=== PATIENT | male | born 1975 | race Caucasian/White ===

== ENCOUNTER 2024-02-14 10:55 | Emergency (ER) | payer BC, SELFPAY ==
[2024-02-14 11:04] VITALS: BP 144/78; PULSE 82; RESP 20; TEMP 36.8; O2SAT 100
--- NOTE | 2024-02-14 11:17 | ED.SOB ---
HPI - SOB/Dyspnea General Chief Complaint: Shortness of Breath/Dyspnea Stated Complaint: Chest Pain/Shortness of Breath Time Seen by Provider: 02/14/24 11:18 Source: patient, RN notes reviewed and old records reviewed Mode of arrival: ambulatory Limitations: no limitations History of Present Illness HPI Narrative: 48 year old male who presents to express care with complaints of episodes of shortness of breath with some tightness and burning in chest since Wednesday. Patient reports that he notices episodes are worse when he is outside in heat and working. He states history of asthma and seasonal allergies and past history of MN with 2 stents placed. He reports that around 829 he noticed episode and they had windows open and he became concerned and took 4 baby aspirins. Patient reports that he has an inhaler at home and did not use it. He states that on the way here in the air conditioning the symptoms resolved and denies any present dyspnea or any tightness or burning in chest. Patient has no tachypnea or any retractions SAO2 100% on room air. Patient reports no nausea or sharp pain to chest with episodes or any sweating or radiation of pain to arm. He states that he saw his tool liaison Dr Newberry in October. MD elicited complaint: shortness of breath and chest pain (burning) Pertinent past history: asthma and other ([place] with 2 stents) Onset (ago): day(s) (829) Exacerbating factors: warm air and humidity Treatment prior to arrival: other (took 4 baby aspirins) Related Data Home Medications Medication Instructions Recorded Confirmed atorvastatin 80 mg tablet 80 mg PO DAILY 02/14/24 02/14/24 ramipril 5 mg capsule 5 mg PO DAILY 02/14/24 02/14/24 Allergies Allergy/AdvReac Type Severity Reaction Status Date / Time Penicillins Allergy Mild Unknown Verified 02/14/24 11:18 DIPHENHYDRAMINE HCL Allergy Mild Unknown Uncoded 02/14/24 11:18 METHYLPHENIDATE HCL Allergy Mild Unknown Uncoded 02/14/24 11:18 Review of Systems Review of Systems: CONSTITUTIONAL: Denies fever, chills, or sweats. EYES: Denies visual changes, redness, or discharge. ENT: Reports some rhinorrhea, nasal congestion,no sore throat, no otalgia. CARDIOVASCULAR: Denies chest pain, palpitations, or edema.reports episodes of tightness and burning in chest RESPIRATORY: Denies acute cough, reports episodes of dyspnea. GASTROINTESTINAL: Denies abdominal pain, nausea, vomiting, or diarrhea. GENITOURINARY: Denies dysuria or hematuria. SKIN: Denies rash or itching. MUSCULOSKELETAL: Denies back pain, joint pain, or myalgia. NEUROLOGIC: Denies headache, numbness, or weakness. PSYCHIATRIC: Denies anxiety or depression. All systems reviewed & are unremarkable except as noted in HPI and below PMFSH Past Medical History Medical History (Updated 02/15/24 @ 10:17 by Deana Qeuzada NP) Asthma Elevated cholesterol Fractured great toe right with pins Hypertension Myocardial infarction Seasonal allergies Surgical History Surgical History (Updated 02/15/24 @ 10:01 by Deana Quezada NP) History of heart artery stent x2 History of tonsillectomy Family History Family History (Updated 02/15/24 @ 10:03 by Deana Quezada NP) Father Acute myocardial infarction Social History Social History (Updated 02/15/24 @ 10:00 by Deana Quezada NP) Smoking status: Former smoker Alcohol intake: former Substance use type: marijuana Living arrangements: with family Gender identity (if verbalized by the patient): Male Comments At time of signature, agree with nursing past medical, surgical, social and family history. There is no relevant family history pertinent to the presenting complaint Exam Narrative: GENERAL: Well-appearing, well-nourished, and in no acute distress. HEAD: Normocephalic, atraumatic. EYES: PERRLA and EOMI. ENT: Nares clear, clear rhinorrhea no epistaxis. Mucous membranes moist.TM's normal with good light reflex, throat pink tonsi
--- NOTE | 2024-02-14 11:42 | ECG_ITS ---
SEE SCANNED COPY FOR CONFIRMED REPORT MTDD
== END 2024-02-14 12:22 | disposition home or self-care (01) ==
PROVIDERS: Emergency Provider Registered Nurse; PCP Physician Assistant
DX: J45.901 Unspecified asthma with (acute) exacerbation (principal); R07.89 Other chest pain; Z87.891 Personal history of nicotine dependence; F12.90 Cannabis use, unspecified, uncomplicated; J45.909 Unspecified asthma, uncomplicated; E78.00 Pure hypercholesterolemia, unspecified; I10 Essential (primary) hypertension; I25.2 Old myocardial infarction; Z95.5 Presence of coronary angioplasty implant and graft
CPT/HCPCS: 93005; 99213; G0463

== ENCOUNTER 2025-05-15 08:04 | Outpatient (CLI) | payer BC, SELFPAY ==
--- NOTE | ~2025-05-15 | US_ITS ---
US abdomen complete EXAMINATION: US Abdomen Complete INDICATION: Epigastric pain PROCEDURE: Realtime High Resolution abdomen ultrasound. COMPARISON: No prior studies for comparison FINDINGS: Gallbladder within normal limits. No gallstones, pericholecystic fluid, gallbladder wall t hickening or biliary dilatation. Common bile duct measures 3 mm. Liver echotexture within normal limits without focal mass. Pancreas within normal limits. Pancreati c tail is obscured by bowel gas. Spleen is unremarkeable. There are calcified granulomas of the sple en. Renal echotexture is within normal limits bilaterally without hydronephrosis, contour deforming m ass or renal stone. Right kidney measures 10.5 cm. Left kidney measures 12 cm. Visualized aspects of the aorta and IVC are within normal limits. Portal vein is patent. No sonograph ic Herbert's sign indicated by the technologist. IMPRESSION: 1: Normal abdominal ultrasound. Reviewed, dictated and finalized at location A.
--- OUTSIDE RECORDS SUMMARY | 2025-05-15 08:09 | XMS_ITS | Encounter Summary ---
Author Organization [facility] Address [address] [place] [address] Phone Care Team Providers Care Manager Sourcing Name Role Phone Edgar Tejeda Primary Care Provider [phone] Scott Crowley MD Unavailable Vikki Tyler MD Unavailable [phone] Carlos Marc MD Unavailable [phone] Reason for Visit * Reason Comments Medication Refill Encounter Details Date Type Department Care Team (Late st Contact Info) Description 09/10/2023 Refill [facility] [address] [place] [address] Scott Crowley MD [address] [address] Medication Refill Social History Tobacco Use Types Packs/Day Years Used Date Smoking Tobacco: Former Cigarettes 11 13 1 7 - 2013 Smokeless Tobacco: Former Chew Quit: 1987 Alcohol Use Standard Drinks/Week Comments Yes 0 (1 standard drink = 0.6 oz pur e alcohol) Rare Sexually Active Control Partners Comments Yes Sex and Gender Information Value Date Recorded Sex Assigned at Not on file Legal Sex Male 10:13 PM CDT Gender Identity Not on file Sexual Orientation Not on file documented as of this encounter Plan of Treatment Not on file documented as of this encounter Visit Diagnoses Not on filedocumented in this encounter Care Teams Manager Sourcing Relationship Specialty Start Date End Date Edgar Tejeda PAC [address] [place] [id number] PCP - General Physician Deputy County Attorney 07/01/22 Scott Crowley MD #2 [facility] [address] [place] [address] Consulting Physician Urology 07/15/22 Vikki Tyler MD [address] [address] Consulting Physician Cardiovascular Disease - Cardiology 07/31/22 Carlos Marc MD [address] [place] [address] Consulting Physician Gastroenterology 07/30/22 documented as of this encounter
--- OUTSIDE RECORDS SUMMARY | 2025-05-15 08:09 | XMS_ITS | Clinical Summary ---
Author Organization [facility] Address [address] [place] [address] Care Team Providers Care Veterinary Medicine Teacher Name Role Phone Moi Wilburn MD Primary Care Provider [phone] Fabian Parsons MD Unavailable Vikki Tyler MD Unavailable [phone] Allergies Active Allergy Reactions Criticality Noted Date Comments Diphenhydramine Anaphylaxis High Penicillins Anaphylaxis High Medications aspirin 81 mg chewable tablet Take 1 tablet (81 mg total) by mouth daily 8 Active ramipriL (ALTACE) 5 mg capsule TAKE 1 CAPSULE(5 MG) BY MOUTH DAILY 90 capsule 3 4 Active albuterol HFA (PROVENTIL HFA,VENTOLIN HFA,PROAIR HFA) 90 mcg/actuation inhaler Inhale 2 puffs every 6 (six) hours as needed 2 Active acetaminophen 500 mg capsuleIndicati ons:Pain Take 2 capsules (1,000 mg total) by mouth every 6 (six) hours 5 Active Additional Information Patient taking differently:1,000 mg oralEvery 6 hours PRN, Indications: Pain, Reported on 03/20/2025 amiodarone (PACERONE) 200 mg tabletIndicatio ns:Prevention of A. Fib Post Cardio-Thoracic Surgery Take 2 tablets (400 mg total) by mouth 2 (two) times a day for 7 days, THEN 2 tablets (400 mg total) daily. 88 tablet 5 Active Additional Information Patient not taking.Reason: completed, Reported on 03/20/2025 senna-docusate (PERICOLACE) 8.6-50 mg Take 2 tablets by mouth daily for 5 days 10 tablet 5 Active Additional Information Patient not taking.Reason: completed, Reported on 03/20/2025 LORazepam (ATIVAN) 0.5 mg tablet Take 1 tablet (0.5 mg total) by mouth nightly for 7 days 7 tablet 5 Active Additional Information Patient not taking.Reason: completed, Reported on 03/20/2025 oxyCODONE (ROXICODONE) 5 mg immediate release tabletIndicatio ns:Pain Take 1 tablet (5 mg total) by mouth every 4 (four) hours as needed for pain for up to 21 doses 21 tablet 5 Active Additional Information Patient not taking.Reason: completed, Reported on 03/20/2025 metoprolol tartrate (LOPRESSOR) 25 mg immediate release tabletIndicatio ns:coronary artery disease,hyperte nsion Take 1 tablet (25 mg total) by mouth 2 (two) times a day 180 tablet 3 5 01/26/20 26 Active atorvastatin (LIPITOR) 80 mg tablet TAKE 1 TABLET(80 MG) BY MOUTH EVERY NIGHT 90 tablet 3 5 Active furosemide (LASIX) 40 mg tabletIndicatio ns: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 Take 1 tablet (40 mg total) by mouth daily for 7 days 7 tablet 5 Active Additional Information Patient not taking.Reason: completed, Reported on 03/20/2025 warfarin (COUMADIN) 2 mg tablet TAKE 1 TABLET(2 MG) BY MOUTH DAILY 30 tablet 3 5 Active Active Problems Problem Noted Date Diagnosed Date Aortic valve stenosis, etiol ogy of cardiac valve disease unspecified 12/22/2024 Coronary artery disease (CAD) excluded NSTEMI (non-ST elevated myocardial infarction) 0 11/12/2024 Aortic valve stenosis 10/31/2024 Status post insertion of drug eluting coronary a rtery stent 09/10/2021 Atrial fibrillation 02/13/2021 AR (aortic regurgitation) 02/13/2021 Bicuspid aortic valve 02/13/2021 Coronary artery disease invo lving [place] coronary artery of [place] heart without angina pectoris 02/13/2021 Old CA (myocardial infarction) 02/13/2021 Intermittent asthma without complication 018 ST elevation myocardial infa rction involving left anterior descending (LAD) coronary artery 06/16/2018 Encounters Date Type Department Care Team Description 05/14/2025 8:00 AM CDT Office Visit [facility] Cardiac [address] [address] Heart valve replaced (Primary Dx) 05/11/2025 8:00 AM CDT Office Visit [address] [address] 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) 05/07/2025 8:00 AM CDT Office Visit [address] [address] Heart valve replaced (Primary Dx) 05/04/2025 8:00 AM CDT Office Visit [address] [address] 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) 04/30/2025 8:00 AM CDT Office Visit [address] [address] 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) 04/30/2025 Anticoagulation Telephone Call [employer] at [address] [place] [phone] Alley Boo MA Aortic valve stenosis, etiology of cardiac valve disease unspecified (Primary Dx) 04/30/2025 Results Follow-Up [employer] at [address] [place] [phone] Alley Boo MA Protime-INR 04/27/2025 5:46 PM CDT - 04/27/2025 11:59 PM CDT Hospital Encounter [address] [address] Aortic valve stenosis, etiology of cardiac valve disease unspecified Discharge Disposition: Discharge to home or self care 04/27/2025 1:30 PM CDT Lab [facility] Out[facility] Lab at [address] [phone] 04/27/2025 8:00 AM CDT Office Visit [facility] Cardiac [address] [address] 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) 04/23/2025 8:00 AM CDT Office Visit [facility] Cardiac [address] [address] 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) 04/16/2025 8:00 AM CDT Office Visit [address] [address] 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) 04/13/2025 8:00 AM CDT Office Visit [address] [address] 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) 04/09/2025 8:00 AM CDT Office Visit [address] [address] Heart valve replaced (Primary Dx) 04/03/2025 Anticoagulation Telephone Call [employer] at [address] [place] [phone] Alley Boo MA Aortic valve stenosis, etiology of cardiac valve disease unspecified (Primary Dx) 04/03/2025 Results Follow-Up [employer] at [address] [place] [phone] Alley Boo MA Protime-INR 03/30/2025 1:30 PM CDT Lab [facility] Outpatient Lab at [address] [phone] 03/30/2025 1:27 PM CDT - 03/30/2025 11:59 PM CDT Hospital Encounter [address] [address] Aortic valve stenosis, etiology of cardiac valve disease unspecified Discharge Disposition: Discharge to home or self care 03/30/2025 8:00 AM CDT Office Visit [facility] Cardiac [address] [address] 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) 03/26/2025 8:00 AM CDT Office Visit [address] [address] 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) 03/20/2025 11:45 AM CDT Office Visit [facility] Surgery [address] [facility][1] [address] [place] [phone] Puja Guzman NP History of aortic valve stenosis (Primary Dx); History of coronary artery bypass graft 03/19/2025 8:00 AM CDT Office Visit [address] [address] 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) 03/16/2025 8:00 AM CDT Office Visit [address] [address] 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) 03/14/2025 8:00 AM CDT Office Visit [address] [address] Heart valve replaced (Primary Dx) 03/09/2025 8:00 AM CDT Office Visit [address] [address] 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) 03/02/2025 8:00 AM CDT Office Visit [address] [address] 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) 03/02/2025 Anticoagulation Telephone Call [employer] at [address] [place] [phone] Alley Boo MA Aortic valve stenosis, etiology of cardiac valve disease unspecified (Primary Dx) 03/02/2025 Results Follow-Up [employer] at [address] [place] [address] Alley Boo MA Protime-INR 03/01/2025 12:00 PM CDT Lab [facility] Out[facility] Lab at [address] [address] Coronary artery disease (CAD) excluded (Primary Dx) 03/01/2025 11:49 AM CDT - 03/01/2025 11:59 PM CDT Hospital Encounter [address] [address] Aortic valve stenosis, etiology of cardiac valve disease unspecified Discharge Disposition: Discharge to home or self care 02/27/2025 Orders Only [employer] at [address] [phone] Vikki Tyler MD 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 02/27/2025 Telephone [employer] at [address] [address] Alley Boo MA 02/26/2025 8:00 AM CDT Office Visit [address] [address] 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) 02/23/2025 8:00 AM CDT Office Visit [address] [address] 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) 02/21/2025 8:00 AM CDT Office Visit [address] [address] 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) 02/19/2025 Results Follow-Up [employer] at [address] [phone] Alley Boo MA Protime-INR 02/19/2025 Anticoagulation Telephone Call [employer] at [address] [phone] Alley Boo MA Aortic valve stenosis, etiology of cardiac valve disease unspecified (Primary Dx) 02/16/2025 3:30 PM CDT Lab [facility] Outpatient Lab at [address] [phone] 02/16/2025 3:20 PM CDT - 02/16/2025 11:59 PM CDT Hospital Encounter [address] [address] Aortic valve stenosis, etiology of cardiac valve disease unspecified Discharge Disposition: Discharge to home or self care 02/14/2025 8:00 AM CDT Office Visit [facility] [address] [place] [address] 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) from Last 3 Months Surgical History Surgery Date Site/Laterality Comments ORAL SURGERY TONSILLECTOMY as a kid CARDIAC CATHETERIZATION 2 or 3 stents COLONOSCOPY ESOPHAGOGASTRODUODENOSCOPY Medical History Medical History Date Comments Hyperlipidemia Myocardial infarction (HCC) 2018 STEM I Coronary artery disease SOB (shortness of breath) last 2 -3 months Chest discomfort Asthma 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 No 11/14/2024 Social Connection and Isolat ion Panel [NHANES] Answer Date Recorded In a typical week, how many times do you talk on the phone with family, friends, or neighbors? More than three times a week 11/14/2024 How often do you get togethe r with friends or relatives? More than three times a week 11/14/2024 How often do you attend chur ch or muslim services? Never 11/14/2024 Do you belong to any clubs o r organizations such as muslim groups, unions, fraternal or athletic groups, or school groups? No 11/14/2024 How often do you attend meet ings of the clubs or organizations you belong to? Never 11/14/2024 Are you , , di vorced, , never , or living with a partner? Living with partner 11/14/2024 AUDIT-C Answer Date Recorded Q1: How often do you have a drink containing alc ohol? 2-4 times a month 11/08/2024 Q2: How many drinks containi ng alcohol do you have on a typical day when you are drinking? 1 or 2 11/08/2024 Q3: How often do you have si x or more drinks on one occasion? Never 11/08/2024 Overall Financial Resource Strain (CARDIA) Answe r Date Recorded How hard is it for you to pa y for the very basics like food, housing, medical care, and heating? Not hard at all 11/14/2024 PHQ-2 Answer Date Recorded PHQ-2 Total Score (If total score is 3 or more points, staff should administer the PHQ-9) 0 12/26/2024 Hunger Vital Sign Answer Date Recorded Within the past 12 months, y ou worried that your food would run out before you got the money to buy more. Never true 11/14/19 25 Within the past 12 months, t he food you bought just didn't last and you didn't have money to get more. Never true 11/14/2024 PRAPARE - Transportation Answer Date Re corded In the past 12 months, has l ack of transportation kept you from medical appointments or from getting medications? No 10/19 In the past 12 months, has l ack of transportation kept you from meetings, work, or from getting things needed for daily living? No 11/14/2024 Housing Stability Vital Sign Answer Jayy e Recorded In the last 12 months, was t here a time when you were not able to pay the mortgage or rent on time? No 11/14/2024 In the past 12 months, how m any times have you moved where you were living? 0 11/14/2024 At any time in the past 12 m [facility], were you homeless or living in a long-term (including now)? No 11/14/2024 Personal Safety Answer Date Recorded Have you ever been in or are you currently in a harmful physical or emotional relationship or is someone making you feel afraid or unsafe? Denies 11/12/2024 Sex and Gender Information Value Date Recorded Sex Assigned at Not on file Legal Sex Male 3:59 PM [employer] WORK[employer] Gender Identity Not on file Sexual Orientation Not on file Obstetrics History Last Filed Vital Signs Vital Sign Reading Time Taken Comments Blood Pressure 138/82 03/20/2025 11:53 AM CDT Pulse 63 03/20/2025 11:53 AM CDT Temperature 36.6 C (97.9 F) 12/22/2024 3:00 PM [employer] WORK[employer] Respiratory Rate 18 12/26/2024 10:00 AM CDT Oxygen Saturation 96% 12/26/2024 10:00 AM CDT Inhaled Oxygen Concentration - - Weight 100.7 kg (222 lb) 04/24/2025 9:00 AM CDT Height 182.9 cm (6' 0.01) 04/24/2025 9:00 AM CD T Body Mass Index 30.1 04/24/2025 9:00 AM CDT Plan of Treatment Health Maintenance Due Date Last Done Comments Colon Cancer Screening-Colonoscopy 1973 Hepatitis C Screening 1973 Prostate Cancer Screening-PSA 1973 Hepatitis B Screening 1991 Regular Well Visit/Exam 18-64 1991 Pneumococcal vaccine <65 (1 of 2 - PCV) 1992 Zoster Vaccine (1 of 2) 2023 Influenza Vaccine (#1) 2025 Depression Screening 12/26/2025 12/26/2024 DTaP/Tdap/Td Vaccine (2 - Td or Tdap) 06/20/203112/2020 Medical Devices Implanted Type Area Senior Planner Device Identifier Shelf Expiration Date Model / Serial / Lot [employer] [place] Flexcuff 25mm 23mm 1 Digit Gradient Mechanical Leaflet [id number] - [id number] - [id number] Implanted:Qty : 1 on 11/16/2024 by Fabian Parsons MD at [facility] Prosthetic Valve N/A: Heart [employer] [id number] 03/07/2028 [id number] / [id number] / [employer] Angio-Seal Vip 6fr Closere Device [id number] - [id number] Implanted:Qty : 1 on 11/13/2024 by Berto Young MD at [facility] [employer] [id number] / / Procedures Procedure Name Priority Date/Time Associated Diagnosis Comments PROTIME-INR Routine 04/27/2025 12:00 PM CDT Aortic valve stenosis, etiology of cardiac valve disease unspecified PROTIME-INR Routine 03/30/2025 1:27 PM CDT Aortic valve stenosis, etiology of cardiac valve disease unspecified PROTIME-INR Routine 03/01/2025 11:49 AM CDT Aortic valve stenosis, etiology of cardiac valve disease unspecified PROTIME-INR Routine 02/16/2025 3:20 PM CDT Aortic valve stenosis, etiology of cardiac valve disease unspecified from Last 3 Months Results * (ABNORMAL) Protime-INR (04/27/2025 12:00 PM CDT) PT 32.5(H) 9.7 - 13.0 sec INR 2.94(H) 0.90 - 1.20 [facility] Comment: Interpretive data Oral anticoagulant therapeutic ranges: Venous thromboembolism prophylaxis or treatment: 2.0-3.0 CARDIOLOGY Standard range: 2.0-3.0 High-intensity range: 2.5-3.5 Refer to indication-specific guidelines for appropriate target ranges for prosthetic heart valve replacement. Current interpretive data was last revised on 2019. Blood 04/27/2025 12:0 0 PM CDT 04/27/2025 6:25 PM CDT us Vikki Tyler MD LAB BLOOD ORDERABLES Final Result [facility] [address] [facility] Department [place] [address] * (ABNORMAL) Protime-INR (03/30/2025 1:27 PM CDT) PT 34.5(H) 9.7 - 13.0 sec INR 3.12(H) 0.90 - 1.20 [facility] Comment: Interpretive data Oral anticoagulant therapeutic ranges: Venous thromboembolism prophylaxis or treatment: 2.0-3.0 CARDIOLOGY Standard range: 2.0-3.0 High-intensity range: 2.5-3.5 Refer to indication-specific guidelines for appropriate target ranges for prosthetic heart valve replacement. Current interpretive data was last revised on 2019. Blood 03/30/2025 1:27 PM CDT 03/30/2025 5:15 PM CDT Vikki Tyler MD LAB BLOOD ORDERABLES Final Result Performing Organization Address [facility] de Phone Number [facility] [address] [address] [facility] [place] [address] [place] [address] * (ABNORMAL) Protime-INR (03/01/2025 11:49 AM CDT) PT 32.8(H) 9.7 - 13.0 sec INR 2.97(H) 0.90 - 1.20 [facility] Comment: Interpretive data Oral anticoagulant therapeutic ranges: Venous thromboembolism prophylaxis or treatment: 2.0-3.0 CARDIOLOGY Standard range: 2.0-3.0 High-intensity range: 2.5-3.5 Refer to indication-specific guidelines for appropriate target ranges for prosthetic heart valve replacement. Current interpretive data was last revised on 2019. Blood 03/01/2025 11:4 9 AM CDT 03/01/2025 9:29 PM CDT Vikki Tyler MD LAB BLOOD ORDERABLES Final Result Performing Organization Address [facility] de Phone Number [facility] [address] [address] [facility] [place] [address] [place] [address] * (ABNORMAL) Protime-INR (02/16/2025 3:20 PM CDT) PT 23.4(H) 9.7 - 13.0 sec INR 2.13(H) 0.90 - 1.20 [facility] Comment: Interpretive data Oral anticoagulant therapeutic ranges: Venous thromboembolism prophylaxis or treatment: 2.0-3.0 CARDIOLOGY Standard range: 2.0-3.0 High-intensity range: 2.5-3.5 Refer to indication-specific guidelines for appropriate target ranges for prosthetic heart valve replacement. Current interpretive data was last revised on 2019. Blood 02/16/2025 3:20 PM CDT 02/16/2025 8:44 PM CDT Vikki Tyler MD LAB BLOOD ORDERABLES Final Result Performing Organization Address [place] [address] [facility] Department [place] [address] from Last 3 Months Insurance [place] Advance Directives For more information, please contact: [phone] * Full Code (Latest Code Status on File) Date Activated Date Inactivated Comments 11/12/2024 7:55 PM 11/24/2024 10:35 PM Care Teams Veterinary Medicine Teacher Relationship Specialty Start Date End Date Moi Wilburn MD [address] [place] [address] PCP - General Internal Medicine 02/12/21 Fabian Parsons MD [address] [place] [address] Surgeon Cardiothoracic Surgery 11/24/24 Vikki Tyler MD [address] [place] [address] Consulting Physician Cardiology 11/24/24
--- OUTSIDE RECORDS SUMMARY | 2025-05-15 08:09 | XMS_ITS | Encounter Summary ---
Author Organization [facility] Healthcare Address [address] [place] [address] Care Team Providers Care Powersaw Supervisor Name Role Phone Moi Wilburn MD Primary Care Provider [phone] Fabian Parsons MD Unavailable [phone] Vikki Tyler MD Unavailable [phone] Encounter Details Date Type Department Care Team (Late st Contact Info) Description 04/30/2025 Results Follow-Up [employer] at [address] [address] Alley Boo MA Protime-INR Social History Tobacco Use Types Packs/Day Years Used Date Smoking Tobacco: Former Cigarettes Q uit: 02/12/2014 OASIS D0700: Social Isolation Answer Da te Recorded Frequency of experiencing loneliness or isolatio n Never 11/26/2024 [facility] Utilities Answer Date Recorded In the past 12 months has [employer] electric, gas, oil, or water company threatened [...] week 11/14/2024 How often do you attend [facility] or orthodoxy services? Never 11/14/2024 Do you belong to any clubs o r organizations such as adventism groups, unions, fraternal or athletic groups, or [...] any time in the past 12 m [facility], were you homeless or living in a retirement (including now)? No 11/14/2024 Personal Safety Answer Date Recorded Have you ever been in or are you currently in a harmful physical or emotional relationship or is someone making you feel afraid or unsafe? 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 Gender Identity Not on file Sexual Orientation Not on file documented as of this encounter Plan of Treatment Not on file documented as of this encounter Visit Diagnoses Not on filedocumented in this encounter Care Teams Powersaw Supervisor Relationship Specialty Start Date End Date Moi Wilburn MD [address] [place], [place] [id number] PCP - General Internal Medicine 02/12/21 Fabian Parsons MD [address] [place] [address] Surgeon Cardiothoracic Surgery 11/24/24 Vikki Tyler MD [address] [place] [address] Consulting Physician Cardiology 11/24/24 documented as of this encounter
--- OUTSIDE RECORDS SUMMARY | 2025-05-15 08:09 | XMS_ITS | Encounter Summary ---
Author Organization [facility] Address [address] [place] [address] Phone Care Team Providers Care Big Machine Consultant Name Role Phone Edgar Tejeda Primary Care Provider [phone] Scott Crowley MD Unavailable Vikki Tyler MD Unavailable [phone] Carlos Marc MD Unavailable [phone] Reason for Visit * Reason Comments Medication Refill Encounter Details Date Type Department Care Team (Late st Contact Info) Description 09/10/2023 Refill [facility] [address] [place] [address] Scott Crowley MD [address] [address] Medication Refill Social History Tobacco Use Types [...] on filedocumented in this encounter Care Teams Big Machine Consultant Relationship Specialty Start Date End Date Edgar Tejeda PAC [address] [place] [address] PCP - General Physician Pearl Stringer 07/01/22 Scott Crowley MD [address] [facility] [address] [place] [address] Consulting Physician Urology 07/15/22 Vikki Tyler MD [address] [address] Consulting Physician Cardiovascular Disease - Cardiology 07/31/22 Carlos Marc MD [address] [place] [address] Consulting Physician Gastroenterology 07/30/22 documented as of this encounter
--- OUTSIDE RECORDS SUMMARY | 2025-05-15 08:09 | XMS_ITS | Data Portability ---
Author Organization [facility] Jose M [facility] Address [address] [place] [address] Care Team Providers Care Parks And Recreation Worker Name Role Phone RAMON TEJEDA Primary Care Provider JONES RUIZ Customer Records Division Supervisor [phone] Assessment No assessment recorded. Plan of Treatment Reminders Order Date Submit Date Provider Last Modified By Organization Details Last Modified Time Details Appointments None recorded. Lab None recorded. Referral None recorded. Procedures None recorded. Surgeries None recorded. Imaging US, abdomen 2024 025 [facility], [address] [place], [address], 5 17:15:25 XR, chest, 2 view 2024 025 [facility] ([facility] Sched[facility], [address] [place], [address], 5 11:32:05 Medication Orders ibuprofen 800 mg tablet 2023 025 [id number], [address], [place], [place], [id number], 5 10:01:41 albuterol sulfate HFA 90 mcg/actuat ion aerosol inhaler 2023 024 [facility][id number], [address], [place], [place], [id number], 17:09:57 tadalafil 5 mg tablet 2023 025 [id number], [address], [place], [place], [id number], 10:03:30 Patient TargetsNo targets recorded. Patient Instructions Encounter Date Encounter Id Patient Instructions Last Modified By Organization Details Last Modified Time 09/11/2024 [id number] A healthy lifestyle: care instructions anney Not available 09/11/2024 16:19:59 12/04/2024 [id number] A healthy lifestyle: care instructions jnanney Not available 12/04/2024 10:22:25 04/03/2025 [id number] costochondritis: care instructions jnanney Not available 04/03/2025 18:43:54 A healthy lifestyle: care instructions jnanney Not available 04/03/2025 18:45:07 05/07/2025 [id number] A healthy lifestyle: care instructions jnanney Not available 05/07/2025 17:07:27 Reason for Referral None Reported. Results Created Date Observation Date Name Description Value Unit Range Abnormal Flag Note LastModifiedBy Organization Detail LastModifiedTime 10/04/2010/04/2024 Basic metab olic 1999 panel - Serum or Plasm a sodium [moles/volum e] in serum or plasma 141 mmol/ L low: 136mmo l/Lhig h: 145mmo l/L SODIU M 141 136 - 145 mmol/ L 10/04 8:59 AM SALESFORCE TRAINER [facility] Not Available Not Available 11/28/2024 12:33:03 10/04/20 24 10/04/2024 Basic metab olic 2000 panel - Serum or Plasm a potassium [moles/volum e] in serum or plasma 4.2 mmol/ L low: 3.5mmo l/Lhig h: 5.1mmo l/L POTAS SIUM 4.2 3.5 - 5.1 mmol/ L 10/04 8:59 AM SALESFORCE TRAINER [facility] [employer] [facility] Not Available Not Available 11/28/2024 12:33:03 10/04/20 24 10/04/2024 Basic metab olic 1999 panel - Serum or Plasm a chloride [moles/volum e] in serum or plasma 107 mmol/ L low: 98mmol /Lhigh : 107mmo l/L CHLOR NAZARIO 107 98 - 107 mmol/ L 10/04 8:59 AM SALESFORCE TRAINER [facility] [employer] Not Available Not Available 11/28/2024 12:33:03 10/04/20 24 10/04/2024 Basic metab olic 1999 panel - Serum or Plasm a carbon dioxide, total [moles/volum e] in serum or plasma 24 mmol/ L low: 22mmol /Lhigh : 30mmol /L CO2, VENOU S 24 22 - 30 mmol/ L 10/04 8:59 AM SALESFORCE TRAINER [facility] [employer] [facility] Not Available Not Available 11/28/2024 12:33:03 10/04/20 24 10/04/2024 Basic metab olic 1999 panel - Serum or Plasm a anion gap in serum or plasma 14.2 mmol/ L high: 18mmol /L ANION GAP 14.2 <18.0 mmol/ L 10/04 8:59 AM SALESFORCE TRAINER [facility] [employer] [facility] Not Available Not Available 11/28/2024 12:33:03 10/04/20 24 10/04/2024 Basic metab olic 2000 panel - Serum or Plasm a glucose [mass/volume ] in serum or plasma 120 mg/dL low: 70mg/d Lhigh: 99mg/d L high GLUCO SE 120 (H) 70 - 99 mg/dL 10/04 8:59 AM SALESFORCE TRAINER [facility] Not Available Not Available 11/28/2024 12:33:03 10/04/20 24 10/04/2024 Basic metab olic 2000 panel - Serum or Plasm a urea nitrogen [mass/volume ] in serum or plasma 20 mg/dL low: 8mg/dL high: 26mg/d L BUN 20 8 - 26 mg/dL 10/04 8:59 AM SALESFORCE TRAINER [facility] Not Available Not Available 11/28/2024 12:33:03 10/04/20 24 10/04/2024 Basic metab olic 1999 panel - Serum or Plasm a creatinine [mass/volume ] in serum or plasma 1.07 mg/dL low: 0.7mg/ dLhigh : 1.3mg/ dL CREAT ININE , BLOOD 1.07 0.70 - 1.30 mg/dL 10/04 8:59 AM SALESFORCE TRAINER [facility] [employer] [facility] [address] [employer] C[facility] LAB Not Available Not Available 11/28/2024 12:33:03 10/04/20 24 10/04/2024 Basic metab olic 1999 panel - Serum or Plasm a urea nitrogen/cre atinine [mass ratio] in serum or plasma 19 text: - ratio BUN/C REATI NINE RATIO 19 - ratio 10/04 8:59 AM SALESFORCE TRAINER [facility] [employer] [facility] LAB Not Available Not Available 11/28/2024 12:33:03 10/04/20 24 10/04/2024 Basic metab olic 1999 panel - Serum or Plasm a calcium [mass/volume ] in serum or plasma 9.6 mg/dL low: 8.7mg/ dLhigh : 10.5mg /dL CALCI UM 9.6 8.7 - 10.5 mg/dL 10/04 8:59 AM SALESFORCE TRAINER [facility] Not Available Not Available 11/28/2024 12:33:03 10/04/20 24 10/04/2024 Basic metab olic 2000 panel - Serum or Plasm a IS the patient required to BE fasting? No IS THE PATIE NT REQUI RED TO BE FASTI NG? No 10/04 8:59 AM SALESFORCE TRAINER [facility] Not Available Not Available 11/28/2024 12:33:03 10/04/20 24 10/04/2024 Basic metab olic 2000 panel - Serum or Plasm a glomerular filtration rate/1.73 sq M.predicted among non-blacks [volume rate/area] in serum, plasma or blood by creatinine-b ased formula (MDRD) low: 60 GFR, ESTIM ATED >60 >=60 10/04 8:59 AM SALESFORCE TRAINER [facility] [employer] [place] [facility] Not Available Not Available 11/28/2024 12:33:03 10/04/20 24 10/04/2024 Basic metab olic 2000 panel - Serum or Plasm a glomerular filtration rate/1.73 sq M.predicted among blacks [volume rate/area] in serum, plasma or blood by creatinine-b ased formula (MDRD) low: 60 GFR, EST. AFRIC AN >60 >=60 10/04 8:59 AM SALESFORCE TRAINER [facility] [employer] [facility] Not Available Not Available 11/28/2024 12:33:03 10/04/20 24 10/04/2024 Basic metab olic 2000 panel - Serum or Plasm a glomerular filtration rate/1.73 sq M.predicted among non-blacks [volume rate/area] in serum, plasma or blood by creatinine-b ased formula (MDRD) low: 60 GFR, EST. NONAF RICAN >60 >=60 10/04 8:59 AM SALESFORCE TRAINER [facility] [employer] LAB Not Available Not Available 11/28/2024 12:33:03 10/04/20 24 10/04/2024 Basic metab olic 2000 panel - Serum or Plasm a interpretati on and review of laboratory results Abnorm al Not Available Not Available 12:33:03 11/12/19 25 11/12/2024 aPTT in Plate let poor plasm a by Coagu latio n assay APTT in platelet poor plasma by coagulation assay 27 text: 24 - 36 sec PTT 27 24 - 36 sec 11/12 4:24 PM SALESFORCE TRAINER [facility] Not Available Not Available 11/28/2024 12:33:03 11/12/19 25 11/12/2024 aPTT in Plate let poor plasm a by Coagu latio n assay Unknown Analyte Therap eutic range for unfrac tionat ed hepari n at 0.3-0. 7 U/mL is an aPTT value in the range of 71-100 second s. Critic al value for the PTT test is >= 122 second s. Thera peuti c range for unfra ction ated hepar in at 0.3-0 .7 U/mL is an aPTT value in the range of 71-10 0 secon ds. Criti christ value for the PTT test is >= 122 secon ds. Not Available Not Available 11/28/2024 12:33:03 11/12/1911/12/2024 aPTT in Plate let poor plasm a by Sherif moe assay interpretati on and review of laboratory results Normal Not Available Not Available 11/18 12:33:03 11/12/1911/12/2024 CBC W Auto Diffe renti al panel - Blood leukocytes [#/volume] in blood by automated count 5.81 text: 4.00 - 12.00 10(3)/ mcL WBC 5.81 4.00 - 12.00 10(3) /mcL 11/12 1:19 PM SALESFORCE TRAINER [facility] [employer] [facility] Not Available Not Available 11/28/2024 12:33:03 11/12/1911/12/2024 CBC W Auto Diffe renti al panel - Blood erythrocytes [#/volume] in blood by automated count 4.31 text: 4.40 - 5.80 10(6)/ mcL low RBC 4.31 (L) 4.40 - 5.80 10(6) /mcL 11/12 1:19 PM SALESFORCE TRAINER [facility] [employer] CENTE R LAB Not Available Not Available 11/28/2024 12:33:03 11/12/1911/12/2024 CBC W Auto Diffe renti al panel - Blood hemoglobin [mass/volume ] in blood 11.3 g/dL low: 13g/dL high: 16.5g/ dL low HEMOG LOBIN (HGB) 11.3 (L) 13.0 - 16.5 g/dL 11/12 1:19 PM SALESFORCE TRAINER [facility] Not Available Not Available 11/28/2024 12:33:03 11/12/1911/12/2024 CBC W Auto Diffe renti al panel - Blood hematocrit [volume fraction] of blood by automated count 35 % low: 38%hig h: 50% low HEMAT OCRIT (HCT) 35.0 (L) 38.0 - 50.0 % 11/12 1:19 PM SALESFORCE TRAINER [facility] Not Available Not Available 11/28/2024 12:33:03 11/12/19 25 11/12/2024 CBC W Auto Diffe renti al panel - Blood MCV [entitic volume] by automated count 81.2 fL low: 82fLhi gh: 96fL low MCV 81.2 (L) 82.0 - 96.0 fL 11/12 1[facility] [facility] Not Available Not Available 11/28/2024 12:33:03 11/12/19 25 11/12/2024 CBC W Auto Diffe renti al panel - Blood MCH [entitic mass] by automated count 26.2 pg low: 26pghi gh: 32pg MCH 26.2 26.0 - 32.0 pg 11/12 1:[address] [facility] [facility] Not Available Not Available 11/28/2024 12:33:03 11/12/19 25 11/12/2024 CBC W Auto Diffe renti al panel - Blood MCHC [mass/volume ] by automated count 32.3 g/dL low: 31g/dL high: 36g/dL MCHC 32.3 31.0 - 36.0 g/dL 11/12 1:[address] [facility] [facility] Not Available Not Available 11/28/2024 12:33:03 11/12/19 25 11/12/2024 CBC W Auto Diffe renti al panel - Blood platelets [#/volume] in blood 232 text: 140 - 440 10(3)/ mcL PLATE LET COUNT 232 140 - 440 10(3) /mcL 11/12 1:[address] [facility] [facility] Not Available Not Available 11/28/2024 12:33:03 11/12/19 25 11/12/2024 CBC W Auto Diffe renti al panel - Blood erythrocyte distribution width [ratio] by automated count 15.6 % low: 11.8%h igh: 15.5% high RDW 15.6 (H) 11.8 - 15.5 % 11/12 1:19 PM SALESFORCE TRAINER [facility] Not Available Not Available 11/28/2024 12:33:03 11/12/1911/12/2024 CBC W Auto Diffe renti al panel - Blood platelet mean volume [entitic volume] in blood by automated count 11.1 fL low: 8fLhig h: 12.6fL MPV 11.1 8.0 - 12.6 fL 11/12 1:19 PM SALESFORCE TRAINER [facility] Not Available Not Available 11/28/2024 12:33:03 11/12/19 25 11/12/2024 CBC W Auto Diffe renti al panel - Blood neutrophils/ 100 leukocytes in blood by automated count 68.5 % low: 40%hig h: 68% high NEUTR OPHIL S 68.5 (H) 40.0 - 68.0 % 11/12 1:19 PM SALESFORCE TRAINER [facility] Not Available Not Available 11/28/2024 12:33:03 11/12/1911/12/2024 CBC W Auto Diffe renti al panel - Blood lymphocytes/ 100 leukocytes in blood by automated count 17.4 % low: 19%hig h: 49% low LYMPH OCYTE S 17.4 (L) 19.0 - 49.0 % 11/12 1:19 PM SALESFORCE TRAINER [facility] Not Available Not Available 11/28/2024 12:33:03 11/12/19 25 11/12/2024 CBC W Auto Diffe renti al panel - Blood monocytes/10 0 leukocytes in blood by automated count 9.5 % low: 3%high : 13% MONOC YTES 9.5 3.0 - 13.0 % 11/12 1:19 PM SALESFORCE TRAINER [facility] Not Available Not Available 11/28/2024 12:33:03 11/12/19 25 11/12/2024 CBC W Auto Diffe renti al panel - Blood eosinophils/ 100 leukocytes in blood by automated count 3.6 % low: 0%high : 8% EOSIN OPHIL S 3.6 0.0 - 8.0 % 11/12 1:19 PM SALESFORCE TRAINER [facility] Not Available Not Available 11/28/2024 12:33:03 11/12/1911/12/2024 CBC W Auto Diffe renti al panel - Blood basophils/10 0 leukocytes in blood by automated count 1 % low: 0%high : 1% BASOP HILS 1.0 0.0 - 1.0 % 11/12 1:19 PM SALESFORCE TRAINER [facility] Not Available Not Available 11/28/2024 12:33:03 11/12/19 25 11/12/2024 CBC W Auto Diffe renti al panel - Blood neutrophils [#/volume] in blood by automated count 3.98 text: 1.40 - 5.30 10(3)/ mcL ABSOL FALSE PASS NEUTR OPHIL S 3.98 1.40 - 5.30 10(3) /mcL 11/12 1:19 PM SALESFORCE TRAINER [facility] Not Available Not Available 11/28/2024 12:33:03 11/12/19 25 11/12/2024 CBC W Auto Diffe renti al panel - Blood lymphocytes [#/volume] in blood by automated count 1.01 text: 0.90 - 3.30 10(3)/ mcL ABSOL FALSE PASS LYMPH OCYTE S 1.01 0.90 - 3.30 10(3) /mcL 11/12 1:19 PM [facility] Not Available Not Available 11/28/2024 12:33:03 11/12/1911/12/2024 CBC W Auto Diffe renti al panel - Blood monocytes [#/volume] in blood by automated count 0.55 text: 0.10 - 0.90 10(3)/ mcL ABSOL FALSE PASS MONOC YTES 0.55 0.10 - 0.90 10(3) /mcL 11/12 1:19 PM SALESFORCE TRAINER [facility] Not Available Not Available 11/28/2024 12:33:03 11/12/19 25 11/12/2024 CBC W Auto Diffe renti al panel - Blood eosinophils [#/volume] in blood by automated count 0.21 text: 0.00 - 0.50 10(3)/ mcL ABSOL FALSE PASS EOSIN OPHIL 0.21 0.00 - 0.50 10(3) /mcL 11/12 1:19 PM SALESFORCE TRAINER [facility] Not Available Not Available 11/28/2024 12:33:03 11/12/19 25 11/12/2024 CBC W Auto Diffe ijeoma al panel - Blood basophils [#/volume] in blood by automated count 0.06 text: 0.00 - 0.10 10(3)/ mcL ABSOL FALSE PASS BASOP HILS 0.06 0.00 - 0.10 10(3) /mcL 11/12 1:19 PM SALESFORCE TRAINER [facility] [employer] Not Available Not Available 11/28/2024 12:33:03 11/12/19 25 11/12/2024 CBC W Auto Diffe ijeoma al panel - Blood nucleated erythrocytes /100 leukocytes [ratio] in blood 0 NRBC PER 100 WBC 0 11/12 1:19 PM SALESFORCE TRAINER [facility] [employer] Not Available Not Available 11/28/2024 12:33:03 11/12/19 25 11/12/2024 CBC W Auto Diffe gracieti al panel - Blood interpretati on and review of laboratory results Abnorm al Not Available Not Available 12:33:03 11/12/19 25 11/12/2024 Compr ehens fartun metab olic 1999 panel - Serum or Plasm a sodium [moles/volum e] in serum or plasma 137 mmol/ L low: 136mmo l/Lhig h: 145mmo l/L SODIU M 137 136 - 145 mmol/ L 11/12 1:41 PM SALESFORCE TRAINER [facility] [employer] Not Available Not Available 11/28/2024 12:33:03 11/12/19 25 11/12/2024 Compr ehens fartun metab olic 1999 panel - Serum or Plasm a potassium [moles/volum e] in serum or plasma 4 mmol/ L low: 3.5mmo l/Lhig h: 5.1mmo l/L POTAS SIUM 4.0 3.5 - 5.1 mmol/ L 11/12 1:41 PM SALESFORCE TRAINER [facility] Not Available Not Available 11/28/2024 12:33:03 11/12/19 25 11/12/2024 Compr ehens fartun metab olic 1999 panel - Serum or Plasm a chloride [moles/volum e] in serum or plasma 103 mmol/ L low: 98mmol /Lhigh : 107mmo l/L CHLOR NAZARIO 103 98 - 107 mmol/ L 11/12 1:41 PM SALESFORCE TRAINER [facility] Not Available Not Available 11/28/2024 12:33:03 11/12/1911/12/2024 Compr ehens fartun metab olic 2000 panel - Serum or Plasm a carbon dioxide, total [moles/volum e] in serum or plasma 24 mmol/ L low: 22mmol /Lhigh : 30mmol /L CO2, VENOU S 24 22 - 30 mmol/ L 11/12 1:41 PM [facility] Not Available Not Available 11/28/2024 12:33:03 11/12/1911/12/2024 Compr ehens fartun metab olic 2000 panel - Serum or Plasm a anion gap in serum or plasma 14 mmol/ L high: 18mmol /L ANION GAP 14.0 <18.0 mmol/ L 11/12 1:41 PM SALESFORCE TRAINER [facility] Not Available Not Available 11/28/2024 12:33:03 11/12/19 25 11/12/2024 Compr ehens fartun metab olic 1999 panel - Serum or Plasm a glucose [mass/volume ] in serum or plasma 184 mg/dL low: 70mg/d Lhigh: 99mg/d L high GLUCO SE 184 (H) 70 - 99 mg/dL 11/12 1:41 PM SALESFORCE TRAINER [facility] Not Available Not Available 11/28/2024 12:33:03 11/12/19 25 11/12/2024 Compr ehens fartun metab olic 2000 panel - Serum or Plasm a urea nitrogen [mass/volume ] in serum or plasma 18 mg/dL low: 8mg/dL high: 26mg/d L BUN 18 8 - 26 mg/dL 11/12 1:41 PM SALESFORCE TRAINER [facility] [employer] [facility] Not Available Not Available 11/28/2024 12:33:03 11/12/19 25 11/12/2024 Compr ehens fartun metab olic 1999 panel - Serum or Plasm a creatinine [mass/volume ] in serum or plasma 0.97 mg/dL low: 0.7mg/ dLhigh : 1.3mg/ dL CREAT ININE , BLOOD 0.97 0.70 - 1.30 mg/dL 11/12 1:41 PM SALESFORCE TRAINER [facility] [employer] [facility] LAB Not Available Not Available 11/28/2024 12:33:03 11/12/19 25 11/12/2024 Compr ehens fartun metab olic 1999 panel - Serum or Plasm a urea nitrogen/cre atinine [mass ratio] in serum or plasma 19 text: 12 - 20 ratio BUN/C REATI NINE RATIO 19 12 - 20 ratio 11/12 1:41 PM SALESFORCE TRAINER [facility] PDV R LAB Not Available Not Available 11/28/2024 12:33:03 11/12/19 25 11/12/2024 Compr [employer] fartun metab olic 1999 panel - Serum or Plasm a protein [mass/volume ] in serum or plasma 7.6 g/dL low: 6g/dLh igh: 8g/dL TOTAL PROTE IN 7.6 6.0 - 8.0 g/dL 11/12 1:41 PM SALESFORCE TRAINER [facility] [employer] [facility] LAB Not Available Not Available 11/28/2024 12:33:03 11/12/19 25 11/12/2024 Compr ehens fartun metab olic 1999 panel - Serum or Plasm a albumin [mass/volume ] in serum or plasma 4.2 g/dL low: 3.5g/d Lhigh: 5g/dL ALBUM IN 4.2 3.5 - 5.0 g/dL 11/12 1:41 PM SALESFORCE TRAINER [facility] [employer] [facility] LAB Not Available Not Available 11/28/2024 12:33:03 11/12/19 25 11/12/2024 Compr ehens fartun metab olic 1999 panel - Serum or Plasm a albumin/glob ulin [mass ratio] in serum or plasma 1.2 low: 1high: 2.2 A/G RATIO 1.2 1.0 - 2.2 11/12 1:41 PM SALESFORCE TRAINER [facility] [employer] [facility] Not Available Not Available 11/28/2024 12:33:03 11/12/19 25 11/12/2024 Compr ehens fartun metab olic 1999 panel - Serum or Plasm a calcium [mass/volume ] in serum or plasma 8.9 mg/dL low: 8.7mg/ dLhigh : 10.5mg /dL CALCI UM 8.9 8.7 - 10.5 mg/dL 11/12 1:41 PM SALESFORCE TRAINER [facility] [employer] [facility] Not Available Not Available 11/28/2024 12:33:03 11/12/19 25 11/12/2024 Compr ehens fartun metab olic 2000 panel - Serum or Plasm a bilirubin.to yulissa [mass/volume ] in serum or plasma 0.7 mg/dL low: 0.2mg/ dLhigh : 1.2mg/ dL T BILI 0.7 0.2 - 1.2 mg/dL 11/12 1:41 PM SALESFORCE TRAINER [facility] [employer] [facility] Not Available Not Available 11/28/2024 12:33:03 11/12/19 25 11/12/2024 Compr ehens fartun metab olic 2000 panel - Serum or Plasm a aspartate aminotransfe rase [enzymatic activity/vol ume] in serum or plasma 29 U/L low: 6U/Lhi gh: 42U/L SGOT (AST) 29 6 - 42 U/L 11/12 1:41 PM SALESFORCE TRAINER [facility] [employer] LAB Not Available Not Available 11/28/2024 12:33:03 11/12/19 25 11/12/2024 Compr ehens fartun metab olic 2000 panel - Serum or Plasm a alanine aminotransfe rase [enzymatic activity/vol ume] in serum or plasma 32 U/L low: 6U/Lhi gh: 55U/L SGPT (ALT) 32 6 - 55 U/L 11/12 1:41 PM SALESFORCE TRAINER [facility] [employer] [facility] LAB Not Available Not Available 11/28/2024 12:33:03 11/12/19 25 11/12/2024 Compr ehens fartun metab olic 2000 panel - Serum or Plasm a alkaline phosphatase [enzymatic activity/vol ume] in serum or plasma 101 U/L low: 40U/Lh igh: 150U/L ALKAL INE PHOSP HATAS E 101 40 - 150 U/L 11/12 1:41 PM SALESFORCE TRAINER [facility] [employer] LAB Not Available Not Available 11/28/2024 12:33:03 11/12/1911/12/2024 Compr [employer] fartun metab olic 2000 panel - Serum or Plasm a glomerular filtration rate/1.73 sq M.predicted among non-blacks [volume rate/area] in serum, plasma or blood by creatinine-b ased formula (MDRD) low: 60 GFR, ESTIM ATED >60 >=60 11/12 1:41 PM SALESFORCE TRAINER [facility] [employer] [facility] LAB Not Available Not Available 11/28/2024 12:33:03 11/12/1911/12/2024 Compr [employer] fartun metab olic 2000 panel - Serum or Plasm a glomerular filtration rate/1.73 sq M.predicted among blacks [volume rate/area] in serum, plasma or blood by creatinine-b ased formula (MDRD) low: 60 GFR, EST. AFRIC AN >60 >=60 11/12 1:41 PM SALESFORCE TRAINER [facility] [employer] CENT[facility] R LAB Not Available Not Available 11/28/2024 12:33:03 11/12/19 25 11/12/2024 Compr ehens fartun metab olic 2000 panel - Serum or Plasm a glomerular filtration rate/1.73 sq M.predicted among non-blacks [volume rate/area] in serum, plasma or blood by creatinine-b ased formula (MDRD) low: 60 GFR, EST. NONAF RICAN >60 >=60 11/12 1:41 PM SALESFORCE TRAINER [facility] Not Available Not Available 11/28/2024 12:33:03 11/12/19 25 11/12/2024 Compr ehens fartun metab olic 2000 panel - Serum or Plasm a interpretati on and review of laboratory results Abnorm al Not Available Not Available 12:33:03 04/19/20 25 04/04/2025 XR, chest , 2 view No observ ation record ed. [facility] (Radiology) [address] [place], [address], 04/19/2025 13:20:14 Result Notes None recorded. Problems No Known Problems Medical Equipment None Reported. Allergies Allergen ID Allergen Name Allergen Category Reaction Reaction Severity Criticality Documentation Date Start Date Code Code System Note Provider Name and Address Organization Details Recorded Time [id number] Product containin g penicilli n (product) medicatio n Not available Not available Not available 06/24/2018 50005 8001 SNOMED ABENA [place], [place] - [place] 8 12:00:25 033511 codeine medicatio n Not available Not available Not available 06/24/2018 2670 RxNorm ABE[place], [place] - [place] 8 12:00:33 999260 Benadryl medicatio n Not available Not available Not available 06/24/2018 54846 7 RxNorm ABE[place] - [place] 8 12:00:50 802135 ibuprofen medicatio n Not available Not available Not available 06/24/2018 5640 RxNorm ABENA [place], [place] - [place] 4 16:56:47 555999 acetamino phen medicatio n Not available Not available Not available 06/24/2018 161 RxNorm ABENA [place], [place] - [place] 8 12:01:38 Medications Name Sig Start Date Stop Date Status Note LastModified by Organization Details LastModified Time cyclobenzap rine 10 mg tablet TAKE 1 TABLET BY MOUTH THREE TIMES DAILY FOR 10 DAYS 06/05 completed Not Available Not Available Not Available atorvastati n 80 mg tablet TAKE 1 TABLET BY MOUTH EVERY DAY active Not Available Not Available No t Available azithromyci n 250 mg tablet 10/27 completed Not Available Not Available Not Available ibuprofen 800 mg tablet Take 1 tablet 3 times a day by oral route as directed for 30 days. 12/04 completed Not Available Not Available Not Available amiodarone 200 mg tablet Take 2 tablets twice a day by oral route. 04/03 completed Not Available Not Available Not Available prednisone 20 mg tablet TAKE 1 TABLET BY MOUTH TWICE DAILY FOR 5 DAYS 02/23 completed Not Available Not Available Not Available clopidogrel 75 mg tablet TAKE 1 TABLET BY MOUTH EVERY DAY 05/30 completed Not Available Not Available Not Available ciprofloxac in 500 mg tablet TAKE 1 TABLET BY MOUTH EVERY 12 HOURS FOR 10 DAYS 10/27 completed Not Available Not Available Not Available sulfamethox azole 800 mg-trimetho prim 160 mg tablet Take 1 tablet every 12 hours by oral route for 10 days. 07/16 completed Not Available Not Available Not Available lorazepam 0.5 mg tablet Take 1 tablet every day by oral route at bedtime. 04/03 completed Not Available Not Available Not Available tamsulosin 0.4 mg capsule TAKE 2 CAPSULES BY MOUTH DAILY 02/23 completed Not Available Not Available Not Available lisinopril 10 mg tablet TAKE 1 TABLET BY MOUTH EVERY DAY 06/05 completed Not Available Not Available Not Available warfarin 2 mg tablet Take 1 tablet every day by oral route. active Not Available Not Available No t Available nitroglycer in 0.4 mg sublingual tablet 06/05 completed Not Available Not Available Not Available gabapentin 300 mg capsule TAKE 1 CAPSULE BY MOUTH THREE TIMES DAILY 12/04 completed Not Available Not Available Not Available montelukast 10 mg tablet TAKE 1 TABLET BY MOUTH EVERY DAY 12/04 completed Not Available Not Available Not Available methylpredn isolone 4 mg tablets in a dose pack FOLLOW PACKAGE DIRECTION S 06/05 completed Not Available Not Available Not Available albuterol sulfate HFA 90 mcg/actuati on aerosol inhaler INHALE 2 PUFFS BY MOUTH FOUR TIMES DAILY NEEDED active Not Available Not Available No t Available oxybutynin chloride 5 mg tablet TAKE 1 TABLET BY MOUTH TWICE DAILY 05/30 completed Not Available Not Available Not Available ramipril 5 mg capsule TAKE 1 CAPSULE BY MOUTH EVERY DAY active Not Available Not Available No t Available azithromyci n 500 mg tablet TAKE 1 TABLET BY MOUTH EVERY DAY FOR 3 DAYS 06/05 completed Not Available Not Available Not Available Asprin Ec Low Dose 81 mg tablet,fede yed release Take 1 tablet every day by oral route. active Not Available Not Available No t Available tadalafil 5 mg tablet TAKE 1 TABLET BY MOUTH EVERY DAY 12/04 completed Not Available Not Available Not Available tadalafil 20 mg tablet TAKE 1 TABLET BY MOUTH EVERY DAY NEEDED 12/04 completed Not Available Not Available Not Available metoprolol tartrate 25 mg tablet Take 1 tablet twice a day by oral route. active Not Available Not Available No t Available solifenacin 5 mg tablet TAKE 1 TABLET BY MOUTH EVERY DAY 05/30 completed Not Available Not Available Not Available Atrovent HFA 01/16 completed Not Available Not Available Not Available Stimulant Laxative Plus 8.6 mg-50 mg tablet TAKE 2 TABLETS BY MOUTH DAILY FOR 5 DAYS 04/03 completed Not Available Not Available Not Available Incruse Ellipta 62.5 mcg/actuati on powder for inhalation 06/05 completed Not Available Not Available Not Available Rhinocort Allergy 32 mcg/actuati on nasal spray Take 1 spray by nasal route as directed. 02/23 completed Not Available Not Available Not Available Wixela Inhub 250 mcg-50 mcg/dose powder for inhalation Inhale 1 puff twice a day by inhalatio n route for 30 days. 06/05 completed Not Available Not Available Not Available ID NOW COVID-19 Test Kit TEST DIRECTED TODAY 06/05 completed Not Available Not Available Not Available Vitals Date Recorded Body height Body mass index (BMI) Body weight Oxygen saturation Oxygen saturation in Arterial blood by Pulse oximetry Heart rate Systolic And Diastolic Provider Name and Address Organization Details Last Updated DateTime 5 177.8 cm 30 kg/m2 42807.8 1 g 98 % 98 % 57 /min 120/64 mm[Hg] Buffy Henderson MA [place] - [facility] 5 10:08:40 Date Recorded Body height Body mass index (BMI) Body weight Oxygen saturation Oxygen saturation in Arterial blood by Pulse oximetry Heart rate Respiratory rate Systolic And Diastolic Provider Name and Address Organization Details Last Updated DateTime 5 177.8 cm 31.8 kg/m2 327294. 35 g 98 % 98 % 65 /min 16 /min 127/82 mm[Hg] Francie Levy MA [facility] 5 18:32:00 Date Recorded Body height Body mass index (BMI) Body weight Oxygen saturation Oxygen saturation in Arterial blood by Pulse oximetry Heart rate Systolic And Diastolic Provider Name and Address Organization Details Last Updated DateTime 5 177.8 cm 31.9 kg/m2 627722. 51 g 97 % 97 % 56 /min 130/78 mm[Hg] Buffy Henderson MA [facility] 5 16:36:15 Date Recorded Body height Body mass index (BMI) Body weight Oxygen saturation Oxygen saturation in Arterial blood by Pulse oximetry Heart rate Systolic And Diastolic Provider Name and Address Organization Details Last Updated DateTime 4 177.8 cm 31.3 kg/m2 07510.1 4 g 98 % 98 % 59 /min 100/60 mm[Hg] Araceli Traylor MA [facility] 4 16:56:18 Date Recorded Body height Body mass index (BMI) Body weight Oxygen saturation Oxygen saturation in Arterial blood by Pulse oximetry Heart rate Systolic And Diastolic Provider Name and Address Organization Details Last Updated DateTime 4 177.8 cm 32.8 kg/m2 447827. 16 g 98 % 98 % 55 /min 119/75 mm[Hg] Araceli Traylor MA [facility] 4 15:59:15 Social History Question Answer Notes LastModified by Organizat ion Details LastModified Time Tobacco Smoking Status Former Smoker Melissa Fernandez MA [facility] 06/24/2018 12:08:46 Do You Have An Advance Directive? No Information n ot available 04/03/2025 What Is Your Level Of Caffeine Consumption? Heavy Information not available 06/24/2018 In The 14 Days Before Symptom Onset, Have You Had Close Contact With A Laboratory-confirm ed COVID-19 While That Case Was Ill? No Information n ot available 03/25/2021 In The 14 Days Before Symptom Onset, Have You Had Close Contact With A Person Who Is Under Investigation For COVID-19 While That Person Was Ill? No Information not available 03/25/2021 Have You Been To An Area Known To Be High Risk For COVID-19? No Information not available 03/25/2021 What Type Of Diet Are You Following? REGULAR Information n ot available 03/25/2021 Which Illicit Or Recreational Drugs Have You Used? None Information not available 06/24/2018 Education 2 Year College Information not available 06/24/2018 Are There Any Guns Present In Your Home? Yes Information not available 06/24/2018 Live Alone Or With Others? With Others Information not available 06/24/2018 What Was The Date Of Your Most Recent Tobacco Screening? 05/07/2025 Information not available 05/07/2025 How Many Children Do You Have? 0 Information not available 06/24/2018 What Is Your Relationship Status? Information not available 03/25/2021 Seat Belts Used Routinely Yes Information not available 06/24/2018 Smoke Alarm In Home Yes Information not available 06/24/2018 Do You Have Smoke And Carbon Monoxide Detectors In Your Home? Yes Information not available 04/03/2025 Are You Passively Exposed To Smoke? No Information no t available 04/03/2025 How Much Tobacco Do You Smoke? No Information not available 06/24/2018 Do You Use Sunscreen Routinely? Yes Information not available 06/24/2018 Has Tobacco Cessation Counseling Been Provided? No Information not available 03/25/2021 On What Date Was Tobacco Cessation Counseling Provided? 05/07/2025 Information not available 05/07/2025 Sex: Male Functional Status Question Answer Note LastModified by Organizat ion Details LastModified Time Do you use any illicit or recreational drugs? No Information not available 03/25/2021 Do you or have you ever used any other forms of tobacco or nicotine? Yes Information not available 03/25/2021 What is your level of alcohol consumption? Occasional Information not available 06/24/2018 Do you or have you ever used smokeless tobacco? Never used smokeless tobacco Information not available 11/15/2019 Are you currently employed? Yes Information not available 03/25/2021 Are you able to care for yourself independently? Yes Information not available 06/24/2018 Do you or have you ever used e-cigarettes or vape? Former user of electronic cigarettes quit 2 years ago Information not available 03/25/2021 Mental Status Question Answer Note LastModified by Organization D etails LastModified Time Do you feel stressed (tense, restless, nervous, or anxious, or unable to sleep at night)? [id number] Information not available 03/25/2021 Family History Relationship Description Onset Age of this Age Resolved Age Notes LastModified by Organization Details LastModified Time Father Chronic obstructive pulmonary disease [email or web address] Not available 06/24 12:06:45 Father Family history of malignant neoplasm Skin [email or web address] Not available 06/24 12:07:04 Mother Asthma [email or web address] Not available 06/24/2018 12:07:28 Maternal Grandfather Family history of malignant neoplasm Prosta te [email or web address] Not available 06/24/2018 12:07:48 Maternal Grandfather Heart disease [email or web address] Not available 06/24 12:08:01 Paternal Grandfather Family history of malignant neoplasm [email or web address] Not available 06/24 12:07:55 Paternal Grandmother Alzheimer's disease [email or web address] Not available 06/24/2018 12:08:25 Maternal Grandmother Parkinson's disease [email or web address] Not available 06/24 12:08:32 Notes:M-Sjr-Eotohf Medical History Condition Response Coronary Artery Disease N Other N High Blood Pressure N Atrial Fibrillation N Thyroid Problems N Kidney or Bladder Problems N GI Problems N Depression N COPD N Blood Clots N Skin Problems Y Eating Disorder N Anemia Y Heart Attack ([place]) Y Anxiety Disorder N Diabetes N Muscle, Joint, or Bone Problems N Seizures/Epilepsy N Acid Reflux (GERD) N Cancer N Stroke N Asthma Y Allergies Y ADHD N Substance Abuse N High Cholesterol Y Hepatitis N Liver Disease N Schizophrenia N Headaches N Heart Failure N Osteoporosis Y Immunizations Vaccine Type Date Status Note Provider Julius tomas and Address Organization Details Recorded Time Tdap 06/20/2021 completed Buffy Henderson MA [facility], [facility] 06/20/2021 12:20:36 Past Encounters Encounter ID Performer Location Encounter Start Date Encounter Closed Date Diagnosis/Indication Diagnosis SNOMED-CT Code Diagnosis ICD10 Code Diagnosis Note [id number] Arturo Bonner MD [facility] [address] [place] [address] 06/24/2018 11:50:09 06/24/2018 12:36:39 Coronary arteriosclerosis in [place] artery 2610538505 107 I25.10 Seasonal a llergic rhinitis 833162493 J30.2 [id number] Arturo Bonner MD [facility] [address] [place] [address] 06/28/2018 14:38:58 06/28/2018 15:33:47 Seasonal allergic rhinitis 834264248 J30.2 [id number] MK Shipley [facility] [address] [place] [address] 01/16/2019 17:05:48 01/17/2019 10:07:51 Mild intermittent asthma 171575095 J45.21 Coronary arteriosclerosis in [place] artery 0172355207 107 I25.10 Acute bron chitis with bronchospasm 92206146 J20.8 [id number] MK Shipley [facility] [address] [place] [address] 06/21/2019 10:41:02 06/21/2019 12:42:13 Mild persistent asthma 714962739 J45.30 Coronary arteriosclerosis 48964619 I25.10 [id number] MK Shipley [facility] [address] [place] [address] 06/28/2019 11:14:00 06/28/2019 13:53:11 Coronary arteriosclerosis in [place] artery 4025918083 107 I25.10 [id number] MK Shipley [facility] [address] [place] [address] 11/10/2019 10:46:09 11/10/2019 13:32:07 Coronary arteriosclerosis in [place] artery 0512601152 107 I25.10 [id number] Ramon Tejeda PA-C [facility] [address] [place] [address] 11/15/2019 11:52:15 11/16/2019 11:54:22 Compound nevus of skin 108052942 D22.5 [id number] Ramon Tejeda PA-C [facility] [address] [place] [address] 11/24/2019 14:22:10 11/24/2019 15:45:38 Lipomatous tumor 830844612 D17.1 [id number] Ramon Tejeda PA-C [facility] [address] [place] [address] 07/16/2020 10:44:59 07/17/2020 11:11:44 History of testicular disorder 826979425 Z87.007 [id number] Arturo Bonner MD [facility] [address] [place] [address] 03/25/2021 15:28:15 03/25/2021 17:00:09 Cervical radiculopathy 10496525 M54.12 Increased frequency of urination 780205395 R35.0 [id number] Arturo Bonner MD [facility] [address] [place] [address] 06/20/2021 11:53:43 06/24/2021 06:06:06 Laceration of hand 672589742 S61.411A [id number] Ramon Tejeda PA-C [facility] [address] [place] [address] 06/05/2022 15:00:11 06/05/2022 16:09:11 Asthma 925655425 J45.20 Benign pro static hyperplasia 921980834 N40.0 Adult heal th examination 856298687 Z00.00 Increased frequency of urination 071763748 R35.0 [id number] Ramno Tejeda PA-C [facility] [address] [place] [address] 06/26/2022 16:31:47 06/30/2022 13:00:28 Benign prostatic hyperplasia 747434692 N40.0 Anemia 144243550 D64.9 Family his tory of cancer of colon 372950255 Z80.0 Screening for malignant neoplasm of colon 949496498 Z12.11 Hemorrhoids 00067675 K64 .9 Overweight 832022968 E66 .3 Pain of ri ght hip joint 9860868496 99555 M25.551 Obesity 364144352 E66.9 [id number] Ramon Tejeda PA-C [facility] [address] [place] [address] 10/27/2023 17:06:01 10/28/2023 17:04:35 Overactive urinary bladder 548723885 N32.81 Essential hypertension 83240651 I10 Pain of ri ght shoulder joint 8764153288 4119025 M25.511 Overweight 355824783 E66 .3 [id number] Arturo Bonner MD [facility] [address] [place] [address] 02/24/2024 16:51:42 02/28/2024 14:29:26 Moderate persistent asthma 654158499 J45.40 Overweight 343534762 E66 .3 [id number] Ramon Tejeda PA-C [facility] [address] [place] [address] 05/30/2024 16:46:21 06/05/2024 11:53:12 Primary erectile dysfunction 936992231 N52.01 Benign pro static hyperplasia with outflow obstruction 307710923 N40.1 Asthma 915469184 J45.20 [id number] Arturo Bonner MD [facility] [address] [place] [address] 09/11/2024 15:43:44 09/19/2024 11:49:50 Pain of left knee joint 4721233243 79058 M25.562 Overweight 577731990 E66 .3 [id number] Arturo Bonner MD [facility] [address] [place] [address] 12/04/2024 09:53:29 12/05/2024 17:11:10 Coronary arteriosclerosis 90295124 I25.10 History of aortic valve replacement 6810488627 100 Z95.4 Overweight 100820499 E66 .3 [id number] Arturo Bonner MD [facility] [address] [place] [address] 04/03/2025 18:13:13 04/04/2025 11:24:24 Atypical chest pain 925068318 R07.89 Costal chondritis 153959 04 M94.0 Multi vess el coronary artery disease 859860366 I25.10 Obese class I 1515930940 34844 E66.830 [id number] Arturo Bonner MD [facility] [address] [place] [address] 05/07/2025 16:27:55 05/08/2025 17:09:19 Epigastric pain 90675099 R10.13 Obese class I 8091631222 04992 E66.811 E66.3 Health Concerns Section Related Observation LastModified by Organization Detai ls LastModified Time None Recorded Concern Status LastModified by Organization Details LastModified Time None Recorded Advance Directives Directive N: Payers Insurance Date Sequence Insurance Name Policy Number Policy Vela Covered Member ID Vela Member ID Guarantor Name 06/05/2022 1 [facility] (MEDICAID HMO) [id number] Jensen Smith [id number] Jensen Smith 05/04/2025 1 [facility] (PPO) [id number] Jensen Smith [id number] Jensen Smith 04/04/2024 [facility] 02/01/2024 COUNTRY FINANCIAL Tydennis Smith
--- OUTSIDE RECORDS SUMMARY | 2025-05-15 08:09 | XMS_ITS | Encounter Summary ---
Author Organization [facility] Address [address] [place] [address] Phone Care Team Providers Care Hang Gliding Instructor Name Role Phone Shaun Clifton MD Primary Care Provider Edgar Tejeda Primary Care Provider [phone] Scott Crowley MD Unavailable Vikki Tyler MD Unavailable [phone] Carlos Marc MD Unavailable [phone] Encounter Details Date Type Department Care Team (Late st Contact Info) Description 06/06/2022 Transcribe Orders Formerly named [facility] Patient Access Admitting [address] [place] [address] Edgar Tejeda, PAC [address] [place] [address] Routine general medical examination at health care facility (Adult) (Primary Dx) Social History Tobacco Use Types Packs/Day Years Used Date Smoking Tobacco: Former Smokeless Tobacco: Never Alcohol Use Standard Drinks/Week Comments No 0 (1 standard drink = 0.6 oz pur e alcohol) Sex and Gender Information Value Date Recorded Sex Assigned at Not on file Legal Sex Male 10:13 PM CDT Gender Identity Not on file Sexual Orientation Not on file documented as of this encounter Plan of Treatment Not on file documented as of this encounter Results * PSA DIAGNOSTIC,TOTAL (06/10/2022 3:40 PM CDT) Pathologist [facility] PSA, TOTAL (PROSTATIC SPECIFIC ANTIGEN) 0.96 <=4.00 ng/mL 06/10/2022 5:08 PM CDT [facility] Blood Venipuncture / Unknown 06/10/2022 3:40 PM CDT 06/10/2022 4:32 PM CDT Narrative [facility] - 06/10/2022 5:08 PM CDT PSA NOTE: The PSA value should be used in conjunction with information available from clinical evaluation and other diagnostic procedures. us Edgar Tejeda PAC CHEMISTRY ORDERABLES Final Re sult [facility] [address] [place] [address] * LIPID PANEL (06/10/2022 3:40 PM CDT) Pathologist [facility] CHOLESTEROL 122 <=200 mg/dL 06/10/2022 5:30 PM CDT [facility] TRIGLYCERIDES 101 <150 mg/dL 06/10/2022 5:30 PM CDT [facility] HDL CHOLESTEROL 46.6 >40 mg/dL 5:30 PM CDT [facility] LDL 55 5 - 130 mg/dL 06/10/2022 5:30 PM CDT [facility] VLDL 20 5 - 55 mg/dL 06/10/2022 5:30 PM CDT [facility] CHOL/HDL RATIO 2.6 0.0 - 4.4 06/10/2022 5:30 PM CDT [facility] NON-HDL CHOLESTEROL 75.4 <130 mg/dL 06/10/2022 5:30 PM CDT [facility] IS THE PATIENT REQUIRED TO BE FASTING? No 06/10/2022 5:30 PM CDT [facility] Blood Venipuncture / Unknown 06/10/2022 3:40 PM CDT 06/10/2022 4:32 PM CDT us Edgar Tejeda PAC CHEMISTRY ORDERABLES Final Re sult [facility] [address] [place] [address] * (ABNORMAL) CMP (COMPREHENSIVE METABOLIC PANEL) (06/10/2022 3:40 PM CDT) SODIUM 137 136 - 144 mmol/L 06/10/2022 5:30 PM CDT [facility] POTASSIUM 3.9 3.5 - 5.1 mmol/L 06/10/2022 5:30 PM CDT [facility] CHLORIDE 100 100 - 110 mmol/L 06/10/2022 5:30 PM CDT [facility] CO2, VENOUS 25 22 - 32 mmol/L 06/10/2022 5:30 PM CDT [facility] ANION GAP 15.9 8.0 - 20.0 mmol/L 06/10/2022 5:30 PM CDT [facility] GLUCOSE 151(H) 70 - 99 mg/dL 06/10/2022 5:30 PM CDT [facility] BUN 19 6 - 20 mg/dL 06/10/2022 5:30 PM CDT [facility] CREATININE, BLOOD 1.03 0.80 - 1.30 mg/dL 06/10/2022 5:30 PM CDT [facility] BUN/CREATININE RATIO 18 12 - 20 ratio 06/10/2022 5:30 PM CDT [facility] TOTAL PROTEIN 7.1 6.0 - 8.3 g/dL 06/10/2022 5:30 PM CDT [facility] ALBUMIN 4.2 3.5 - 5.2 g/dL 06/10/2022 5:30 PM CDT [facility] Comment: The colormetric methods used for the determination of Albumin may lead to falsely elevated test results in patients suffering from renal failure or insufficiency due to interference with other proteins. A/G RATIO 1.4 1.0 - 2.0 06/10/2022 5:30 PM CDT [facility] CALCIUM 9.2 8.9 - 10.3 mg/dL 06/10/2022 5:30 PM CDT [facility] T BILI 0.5 <=1.2 mg/dL 06/10/2022 5:30 PM CDT [facility] SGOT (AST) 20 <=40 U/L 06/10/2022 5:30 PM CDT [facility] SGPT (ALT) 19 <=41 U/L 06/10/2022 5:30 PM CDT [facility] ALKALINE PHOSPHATASE 98 40 - 130 U/L 06/10/2022 5:30 PM CDT [facility] IS THE PATIENT REQUIRED TO BE FASTING? No 06/10/2022 5:30 PM CDT [facility] GFR, ESTIMATED >60 >=60 06/10/2022 5:30 PM CDT [facility] Comment: Creatinine Clearance is the preferred criteria for selecting drug dose adjustments in renally impaired patients. The GFR is provided as additional pertinent clinical information. GFR is reported in mL/min/1.73 sq m. Calculation based on the Chronic Kidney Disease Epidemiology Collaboration (CKD- EPI) equation refit without adjustment for race. GFR, EST. >60 >=60 022 5:30 PM CDT [facility] GFR, EST. NONAFRICAN >60 >=60 06/10/2022 5:30 PM CDT [facility] Blood Venipuncture / Unknown 06/10/2022 3:40 PM CDT 06/10/2022 4:32 PM CDT us Edgar Tejeda PAC CHEMISTRY ORDERABLES Final Re sult [facility] [address] [place] [address] * (ABNORMAL) COMPLETE BLOOD COUNT (CBC) WITHOUT DIFF (06/10/2022 3:40 PM CDT) WBC 6.69 4.00 - 12.00 10(3)/mcL 06/10/2022 4:36 PM CDT [facility] RBC 3.78(L) 4.40 - 5.80 10(6)/mcL 06/10/2022 4:36 PM CDT [facility] HEMOGLOBIN (HGB) 10.4(L) 13.0 - 16.5 g/dL 06/10/2022 4:36 PM CDT [facility] HEMATOCRIT (HCT) 32.5(L) 38.0 - 50.0 % 06/10/2022 4:36 PM CDT [facility] MCV 86.0 82.0 - 96.0 fL 06/10/2022 4:36 PM CDT [facility] MCH 27.5 26.0 - 32.0 pg 06/10/2022 4:36 PM CDT [facility] MCHC 32.0 31.0 - 36.0 g/dL 06/10/2022 4:36 PM CDT [facility] PLATELET COUNT 252 140 - 440 10(3)/mcL 06/10/2022 4:36 PM CDT [facility] RDW 13.7 11.8 - 15.5 % 06/10/2022 4:36 PM CDT [facility] MPV 11.2 8.0 - 12.6 fL 06/10/2022 4:36 PM CDT [facility] Blood Venipuncture / Unknown 06/10/2022 3:40 PM CDT 06/10/2022 4:32 PM CDT us Edgar Tejeda PAC HEMATOLOGY ORDERABLES Final R esult [facility] [address] [place] [address] documented in this encounter Visit Diagnoses Diagnosis Routine general medical examination at a health care facility- Primary documented in this encounter Care Teams Hang Gliding Instructor Relationship Specialty Start Date End Date Shaun Clifton MD [address] [place] [address] PCP - General Family Medicine 06/17/18 06/30/22 Edgar Tejeda PAC [address] [place] [address] PCP - General Physician Wax Pourer 07/01/22 Scott Crowley MD [address] [facility] [address] [place] [address] Consulting Physician Urology 07/15/22 Vikki Tyler MD [address] [address] Consulting Physician Cardiovascular Disease - Cardiology 07/31/22 Carlos Marc MD [address] [place] [address] Consulting Physician Gastroenterology 07/30/22 documented as of this encounter
--- OUTSIDE RECORDS SUMMARY | 2025-05-15 08:09 | XMS_ITS | Encounter Summary ---
Author Organization [facility] Healthcare Address [address] [place] [address] Care Team Providers Care Handkerchief Maker Name Role Phone Moi Wilburn MD Primary Care Provider [phone] Fabian Parsons MD Unavailable [phone] Vikki Tyler MD Unavailable [phone] Encounter Details Date Type Department Care Team (Late st Contact Info) Description 04/03/2025 Results Follow-Up [facility] L[facility] Generator at [address] [address] Alley Boo MA Protime-INR Social History Tobacco Use Types Packs/Day Years Used Date Smoking Tobacco: Former Cigarettes Q uit: 02/12/2014 OASIS D0700: Social Isolation Answer Da te Recorded Frequency of experiencing loneliness or isolatio n Never 11/26/2024 [facility] Utilities Answer Date Recorded In the past 12 months has [employer] e electric, gas, oil, or water company [...] week 11/14/2024 How often do you attend [facility] or quaker services? Never 11/14/2024 Do you belong to any clubs o r organizations such as congregation groups, unions, fraternal or athletic groups, or [...] any time in the past 12 m [facility], were you homeless or living in a fdc (including now)? No 11/14/2024 Personal Safety Answer Date Recorded Have you ever been in or are you currently in a harmful physical or emotional relationship or is someone making you feel afraid or unsafe? Denies 11/12/2024 Sex and Gender Information Value Date Recorded Sex Assigned at Not on file Legal Sex Male 3:59 PM WOUND CARE PHYSICIAN Gender Identity Not on file Sexual Orientation Not on file documented as of this encounter Plan of Treatment Not on file documented as of this encounter Visit Diagnoses Not on filedocumented in this encounter Care Teams Handkerchief Maker Relationship Specialty Start Date End Date Moi Wilburn MD [address] [place], [place] [id number] PCP - General Internal Medicine 02/12/21 Fabian Parsons MD [address] [place] [address] Surgeon Cardiothoracic Surgery 11/24/24 Vikki Tyler MD [address] [place] [address] Consulting Physician Cardiology 11/24/24 documented as of this encounter
--- OUTSIDE RECORDS SUMMARY | 2025-05-15 08:09 | XMS_ITS | Referral Summary ---
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) 04/27/2025 5:46 PM CDT - 04/27/2025 11:59 PM CDT Hospital Encounter [address] [address] Aortic valve stenosis, etiology of cardiac valve disease unspecified Discharge Disposition: Discharge to home or self care 04/27/2025 1:30 PM CDT Lab [facility] Outpatient Lab at [address] [address] 04/27/2025 8:00 AM CDT Office Visit [facility] [address] [address] 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 [employer] Maintenance Technician at [address] [place] [phone] Alley Boo MA Aortic valve stenosis, etiology of cardiac valve disease unspecified (Primary Dx) 04/03/2025 Results Follow-Up [facility] Maintenance Technician at [address] [place] [phone] Alley Boo MA Protime-INR 03/30/2025 1:27 PM CDT - 03/30/2025 11:59 PM CDT Hospital Encounter [address] [address] Aortic valve stenosis, etiology of cardiac valve disease unspecified Discharge Disposition: Discharge to home or self care 03/30/2025 1:30 PM CDT Lab [facility] Outpatient Lab at [address] [address] 03/30/2025 8:00 AM CDT Office Visit [address] [address] 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) 03/26/2025 8:00 AM CDT Office Visit [address] [address] 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) 03/20/2025 11:45 AM CDT Office Visit [facility] [address] [place] [address] [address] [place] [address] Puja Guzman NP History of aortic valve stenosis (Primary Dx); History of coronary artery bypass graft 03/19/2025 8:00 AM CDT Office Visit [address] [address] 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 Maintenance Technician at [address] [address] Alley Boo MA Aortic valve stenosis, etiology of cardiac valve disease unspecified (Primary Dx) 03/02/2025 Results Follow-Up 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 Maintenance Technician at [address] [address] Vikki Tyler MD 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 02/27/[address] 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) 02/19/2025 Results Follow-Up [facility] [employer] Maintenance Technician at [address] [place] [phone] Alley Boo MA Protime-INR 02/19/2025 Anticoagulation Telephone Call [employer] Maintenance Technician at [address] [place] [phone] Alley Boo MA Aortic valve stenosis, etiology of cardiac valve disease unspecified (Primary Dx) 02/16/2025 3:20 PM CDT - 02/16/2025 11:59 PM CDT Hospital Encounter [address] [address] Aortic valve stenosis, etiology of cardiac valve disease unspecified Discharge Disposition: Discharge to home or self care 02/16/2025 3:30 PM CDT Lab [facility] Outpatient Lab at [address] [address] 02/14/2025 8:00 AM CDT Office Visit [facility] [address] [place] [address] 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) from Last 3 Months Allergies Active Allergy Reactions Criticality Noted Date [...] valve 02/13/2021 Coronary artery disease invo lving [place] coronary artery of [place] heart without angina pectoris 02/13/2021 Old [place] (myocardial infarction) 02/13/2021 Intermittent asthma without complication 018 ST elevation myocardial infa rction involving left anterior descending (LAD) coronary artery 06/16/2018 Social History Tobacco Use Types Packs/Day Years Used Date Smoking Tobacco: Former Cigarettes Q uit: 02/12/2014 Tobacco Cessation:Counseling Given: Not Answered OASIS D0700: Social Isolation Answer Da te Recorded Frequency of experiencing loneliness or isolatio n Never 11/26/2024 [facility] Utilities Answer Date Recorded In the past 12 months has th e electric, gas, oil, or water company [...] often do you attend chur ch or episcopalian services? Never 11/14/2024 Do you belong to any clubs o r organizations such as jain groups, unions, fraternal or athletic groups, or [...] any time in the past 12 m [facility], were you homeless or living in a prison (including now)? No 11/14/2024 Personal Safety Answer Date Recorded Have you ever been in or are you currently in a harmful physical or emotional relationship or is someone making you feel afraid or unsafe? Denies 11/12/2024 Sex and Gender Information Value Date Recorded Sex Assigned at Not on file Legal Sex Male 3:59 PM DIRECTOR ACCOUNT MANAGEMENT Gender Identity Not on file Sexual Orientation Not on file Last Filed Vital Signs Vital Sign Reading Time Taken Comments Blood Pressure 138/82 03/20/2025 11:53 AM CDT Pulse 63 03/20/2025 11:53 AM CDT Temperature 36.6 C (97.9 F) 12/22/2024 3:00 PM DIRECTOR ACCOUNT MANAGEMENT Respiratory Rate 18 12/26/2024 10:00 AM CDT Oxygen Saturation 96% 12/26/2024 10:00 AM CDT Inhaled Oxygen Concentration - - Weight 100.7 kg (222 lb) 04/24/2025 9:00 AM CDT Height 182.9 cm (6' 0.01) 04/24/2025 9:00 AM CD T Body Mass Index 30.1 04/24/2025 9:00 AM CDT Plan of Treatment Not on file Medical Devices Implanted Type Area General Warehouse Worker Device Identifier Shelf Expiration Date Model / Serial / Lot [employer] [place] Flexcuff 25mm 23mm 1 Digit Gradient Mechanical Leaflet [id number] - [id number] - [id number] Implanted:Qty : 1 on 11/16/2024 by Fabian Parsons MD at [facility] Pro[facility]hetic Valve N/A: Heart [employer] [id number] 03/07/2028 [id number] / [id number] / [employer] [place] Angio-Seal Vip 6fr Closere Device [id number] - [id number] Implanted:Qty : 1 on 11/13/2024 by Berto Young MD at [facility] [employer] [id number] / / Procedures Procedure Name Priority Date/Time [...] 0 PM CDT 04/27/2025 6:25 PM CDT Vikki Tyler MD LAB BLOOD ORDERABLES Final Result Performing Organization Address [facility] Co de Phone Number LAYLA [phone] [place] [address] * (ABNORMAL) Protime-INR (03/30/2025 1:27 PM CDT) PT 34.5(H) 9.7 - 13.0 sec INR 3.12(H) 0.90 - 1.20 LAYLA Comment: Interpretive data [...] BLOOD ORDERABLES Final Result Performing Organization Address City/[facility] Co de Phone Number LAYLA [address] [address] [place], [place] [phone] * (ABNORMAL) Protime-INR (03/01/2025 11:49 AM CDT) [...] BLOOD ORDERABLES Final Result Performing Organization Address City/[facility] Co de Phone Number LAYLA NORTON [phone] [address] Department [place] [address] * (ABNORMAL) Protime-INR (02/16/2025 3:20 PM CDT) PT 23.4(H) 9.7 - 13.0 sec INR 2.13(H) 0.90 - 1.20 LAYLA NORTON Comment: Interpretive [...] BLOOD ORDERABLES Final Result Performing Organization Address City/[facility] Co de Phone Number LAYLA NORTON [address] [address] Department [place] [address] from Last 3 Months Insurance [place] Advance Directives For more information, please contact: [phone] * Full Code (Latest Code Status on File) Date Activated Date Inactivated Comments 11/12/2024 7:55 PM 11/24/2024 10:35 PM Care Teams Machine Sorter Relationship Specialty Start Date End Date Moi Wilburn MD [address] [place] [phone] PCP - General Internal Medicine 02/12/21 Fabian Parsons MD [address] [place] [address] Surgeon Cardiothoracic Surgery 11/24/24 Vikki Tyler MD [address] [place] [address] Consulting Physician Cardiology 11/24/24
--- OUTSIDE RECORDS SUMMARY | 2025-05-15 08:09 | XMS_ITS | Encounter Summary ---
Author Organization [facility] Healthcare Address [address] [place] [address] Care Team Providers Care Visual Merchandising Specialist Name Role Phone Moi Wilburn MD Primary Care Provider [phone] Fabian Parsons MD Unavailable [phone] Vikki Tyler MD Unavailable [phone] Encounter Details Date Type Department Care Team (Late st Contact Info) Description 05/14/2025 8:00 AM CDT Office Visit [facility] [address] [place], [place] [phone] Heart valve replaced (Primary Dx) Social History Tobacco Use Types Packs/Day Years Used Date Smoking Tobacco: Former Cigarettes Q uit: 02/12/2014 OASIS D0700: Social Isolation Answer Da te Recorded Frequency of experiencing loneliness or isolatio n Never 11/26/2024 [facility] Utilities Answer Date Recorded In the [...] week 11/14/2024 How often do you attend [facility] or cheondoism services? Never 11/14/2024 Do you belong to any clubs o r organizations such as pentecostal groups, unions, fraternal or athletic groups, or [...] any time in the past 12 m [facility], were you homeless or living in a correction (including now)? No 11/14/2024 Personal Safety Answer Date Recorded Have you ever been in or are you currently in a harmful physical or emotional relationship or is someone making you feel afraid or unsafe? 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 documented in this encounter Plan of Treatment Not on file documented as of this encounter Visit Diagnoses Diagnosis Heart valve replaced- Primary Heart valve replaced by other means documented in this encounter Care Teams Visual Merchandising Specialist Relationship Specialty Start Date End Date Moi Wilburn MD [address] [place] [address] PCP - General Internal Medicine 02/12/21 Fabian Parsons MD [address] [place] [phone] Surgeon Cardiothoracic Surgery 11/24/24 Vikki Tyler MD [address] [place] [address] Consulting Physician Cardiology 11/24/24 documented as of this encounter
--- OUTSIDE RECORDS SUMMARY | 2025-05-15 08:09 | XMS_ITS | Encounter Summary ---
Author Organization [facility] Address [address] [place] [address] Phone Care Team Providers Care Car Dropper Name Role Phone Edgar Tejeda Primary Care Provider [phone] Scott Crowley MD Unavailable Vikki Tyler MD Unavailable [phone] Carlos Marc MD Unavailable [phone] Reason for Referral * Radiology Services (Routine) - Closed Specialty Diagnoses / Procedures Referred By Contac t Referred To Contact Radiology Diagnoses Pre-op testing Procedures EKG 12 LEAD Vikki Tyler MD [address] [facility] [address] [place] [address] Phone: tel: fax: Referral ID Status Reason Start Date Expiration Date Visits Re quested Visits Authorized [id number] Closed 10/03/2024 1 1 ECT ECONOMIST Encounter Details Date Type Department Care Team (Late st Contact Info) Description 10/03/2024 [facility]cribe [facility] [address] [place] [address] Vikki Tyler MD [address] [place] [address] [address] [place] [phone] Pre-op testing (Primary Dx) Social History Tobacco Use Types Packs/Day Years Used Date Smoking Tobacco: Former Cigarettes 2013 Smokeless Tobacco: Former Chew Quit: 1986 Alcohol Use Standard Drinks/Week Comments Yes 0 [...] documented as of this encounter Results * EKG 12 LEAD (10/04/2024 8:22 AM PROJECT ECONOMIST) Ventricular Rate 55 BPM EXTERNAL EKG Atrial Rate 55 BPM EXTERNAL EKG P-R Interval 164 ms EXTERNAL EKG QRS Duration 116 ms EXTERNAL EKG Q-T Duration 436 ms EXTERNAL EKG QTC CALCULATION 417 ms EXTERNAL EKG P [place] 38 degrees EXTERNAL EKG R [place] -51 degrees EXTERNAL EKG T [place] 81 degrees EXTERNAL EKG 10/04/2024 8:22 AM PROJECT ECONOMIST Impressions EXTERNAL EKG - 10/04/2024 3:03 PM PROJECT ECONOMIST Sinus bradycardia Left anterior fascicular block Anteroseptal infarct , age undetermined Abnormal ECG When compared with ECG of 16-JUN-2018 12:37, anteroseptal infarct is now complete and ST elevation has resolved Confirmed by Zachery Saleem ([id number]) on 10/04/2024 3:03:25 PM Narrative Procedure Note Zachery Saleem MD - 10/04/2024 IMPRESSION: Sinus bradycardia Left anterior fascicular block Anteroseptal infarct , age undetermined Abnormal ECG When compared with ECG of 16-JUN-2018 12:37, anteroseptal infarct is now complete and ST elevation has resolved Confirmed by Zachery Saleem ([id number]) on 10/04/2024 3:03:25 PM us Vikki Tyler MD IMG ECG ORDERABLES Final R esult EXTERNAL EKG * (ABNORMAL) BASIC METABOLIC PANEL W/ CALCIUM TOTAL (10/04/2024 8:10 AM PROJECT ECONOMIST) SODIUM 141 136 - 145 mmol/L 10/04/2024 8:59 AM PROJECT ECONOMIST [facility] POTASSIUM 4.2 3.5 - 5.1 mmol/L 10/04/2024 8:59 AM PROJECT ECONOMIST [facility] CHLORIDE 107 98 - 107 mmol/L 10/04/2024 8:59 AM [facility] CO2, VENOUS 24 22 - 30 mmol/L 10/04/2024 8:59 AM [facility] ANION GAP 14.2 <18.0 mmol/L 10/04/2024 8:59 AM [facility] GLUCOSE 120(H) 70 - 99 mg/dL 10/04/2024 8:59 AM [facility] BUN 20 8 - 26 mg/dL 10/04/2024 8:59 AM [facility] CREATININE, BLOOD 1.07 0.70 - 1.30 mg/dL 10/04/2024 8:59 AM [facility] BUN/CREATININE RATIO 19 12 - 20 ratio 10/04/2024 8:59 AM [facility] CALCIUM 9.6 8.7 - 10.5 mg/dL 10/04/2024 8:59 AM [facility] IS THE PATIENT REQUIRED TO BE FASTING? No 10/04/2024 8:59 AM [facility] GFR, ESTIMATED >60 >=60 10/04/2024 8:59 AM [facility] Comment: Creatinine Clearance is the preferred criteria for selecting drug dose adjustments in renally impaired patients. The GFR is provided as additional pertinent clinical information. GFR is reported in mL/min/1.73 sq m. Calculation based on the Chronic Kidney Disease Epidemiology Collaboration (CKD- EPI) equation refit without adjustment for race. GFR, EST. >60 >=60 024 8:59 AM [facility] GFR, EST. NONAFRICAN >60 >=60 10/04/2024 8:59 AM PROJECT ECONOMIST [facility] Blood Venipuncture / Unknown 10/04/2024 8:10 AM PROJECT ECONOMIST 10/04/2024 8:36 AM PROJECT ECONOMIST us Vikki Tyler MD CHEMISTRY ORDERABLES Final Result [facility] [address] [facility] [place] [address] documented in this encounter Visit Diagnoses Diagnosis Pre-op testing- Primary Preoperative examination, unspecified Pre-op testing Preoperative examination, unspecified documented in this encounter Care Teams Car Dropper Relationship Specialty Start Date End Date Edgar Tejeda, PAC [address] [place] [address] PCP - General Physician Frame Catcher 07/01/22 Scott Crowley MD [address] [facility] [address] [place] [address] Consulting Physician Urology 07/15/22 Vikki Tyler MD 2 [facility] [address] [place] [address] Consulting Physician Cardiovascular Disease - Cardiology 07/31/22 Carlos Marc MD [address] [place] [address] Consulting Physician Gastroenterology 07/30/22 documented as of this encounter
--- OUTSIDE RECORDS SUMMARY | 2025-05-15 08:09 | XMS_ITS | Clinical Summary ---
Author Organization [facility] Address [address] [place] [address] Phone Care Team Providers Care General Assembler Name Role Phone Edgar Tejeda Primary Care Provider [phone] Scott Crowley MD Unavailable Vikki Tyler MD Unavailable [phone] Carlos Marc MD Unavailable [phone] Allergies Active Allergy Reactions Criticality Noted Date Comments Diphenhydramine Hcl Shortness of Breath 018 Penicillins Other (see Comments) 06/16/2018 Triggered asthma Medications atorvastatin (LIPITOR) 80 MG Tablet Take 1 Tab by mouth nightly. 90 Tab 1 8 Active aspirin 81 MG Chewable Tablet Take 1 Tab by mouth daily. 100 Tab 8 Active ramipril (ALTACE) 5 MG Capsule nightly. 2 Active ALBUTEROL IN take by inhalation 2 times daily as needed. Active Tadalafil (Cialis) 5 MG Tablet Take 5 mg by mouth daily. USES FOR URINARY URGENCY. PATIENT REPORTED HE IS TO HOLD FOR 48 HOURS PRIOR TO HEART CATH. Active tadalafil (Cialis) 20 MG Tablet Take 20 mg by mouth as needed for Erectile Dysfunction. PATIENT REPORTED HE IS TO HOLD FOR 48 HOURS PRIOR TO HEART CATH. Active Active Problems Problem Noted Date Diagnosed Date ST elevation myocardial infa rction involving left anterior descending (LAD) coronary artery 06/16/2018 Intermittent asthma without complication 018 Encounters Date Type Department Care Team Description 04/04/2025 8:05 AM CDT - 04/04/2025 11:59 PM CDT [facility] [address] [place] [address] Edgar Tejeda, PAC Discharge Disposition: Discharged to home or Selfcare 04/04/2025 Travel 04/04/2025 Transcribe Orders [facility] Central Scheduling [address] [place] [address] Edgar Tejeda, PAC Chondrocostal junction syndrome (Primary Dx) from Last 3 Months Immunizations Immunization Administration Dates Next Due TDAP Vaccine 06/20/2021 Family History Medical History Relation Name Comments Cancer Father lymphoma Chronic Obstructive Pulmonary Disease Father Coronary Artery Disease Father Asthma Mother Coronary Artery Disease Paternal Grandfather Relation Name Status Comments Father Mother Alive Paternal Grandfather Social History Tobacco Use Types Packs/Day Years Used Date Smoking Tobacco: Former Cigarettes - 2013 Smokeless Tobacco: Former Chew Quit: 1986 Tobacco Cessation:Counseling Given: Not Answered Alcohol Use Standard Drinks/Week Comments Yes 0 [...] Sign Reading Time Taken Comments Blood Pressure 124/84 11/12/2024 6:30 PM ASSISTANT BOYS TRACK COACH Pulse 64 11/12/2024 6:30 PM ASSISTANT BO[employer] TR[employer] COACH Temperature 36.7 C (98.1 F) 11/12/2024 12:54 PM ASSISTANT [employer]YS TR[employer] COACH Respiratory Rate 20 11/12/2024 6:30 PM ASSISTANT BOYS TR[employer] COACH Oxygen Saturation 99% 11/12/2024 6:30 PM ASSISTANT BOYS TR[employer] COACH Inhaled Oxygen Concentration - - Weight 99.8 kg (220 lb) 11/12/2024 12:54 PM ASSISTANT BOYS TRACK COACH Height 182.9 cm (6') 11/12/2024 12:54 PM ASSISTANT BOYS TR[employer] COACH Body Mass Index 29.84 11/12/2024 12:54 PM ASSISTANT BOYS TR[employer] COACH Plan of Treatment Health Maintenance Due Date Last Done Comments Hepatitis C Virus (HCV) Screening 1973 Hepatitis B Immunization (1 of 3 - 19+ 3-dose series) 1992 Pneumococcal Immunization (5 0+ years) (1 of 2 - PCV) 1992 Cologuard 2018 Immunochemical Fecal Occult Blood 2018 Zoster Immunization (1 of 2) 2023 SARS-COV-2 Immunization (1 - season) 2024 Influenza Immunization (#1) 2025 Lung Cancer Screening 11/08/2025 11/08/2024 , 11/08/2024 Td Immunization Every 10 Yea rs (Adults With 1 Tdap) 06/20/2031 06/20/2021 Colonoscopy 10/13/2032 10/13/2022 Colorectal Cancer Screening 10/13/2032 Respiratory Syncytial Virus (RSV) Immunization (Adult) (1 - 1-dose 75+ series) 2048 DTaP/Tdap/Td Immunization Discontinued 06/20/2021 Human Papillomavirus (HPV) Immunization Aged Out No longer eligible based on patient's age to complete this topic Meningococcal Immunization (ACWY) Aged Out No longer eligible based on patient's age to complete this topic Rotavirus Immunization Aged Out No lo nger eligible based on patient's age to complete this topic Medical Devices Implanted Type Area Search Strategist Device Identifier Shelf Expiration Date Model / Serial / Lot Stent Coronary Elunir Ridaforolimus Eluting 2.5x 20mm - [id number] Implanted:Qty: 1 on 06/16/2018 by Vikki Tyler MD at [facility] IMPLANT N/A: Coronary [employer] 02/15/2020 [id number] / [id number] / [id number] Device Clsr 70cm 6fr Angio-Seal Vip .035in Vasc Collagen Valuelink Gw Insertion Shth J Physician Chief Of Pathology - [id number] Implanted:Qty: 1 on 06/16/2018 by Vikki Tyler MD at [facility] IMPLANT Etix 12/15/2018 [id number] / / [id number] Device Clsr 70cm 6fr Angio-Seal Vip .035in Vasc Collagen Valuelink Gw Insertion Emre Gillette - [id number] Implanted:Qty: 1 on 10/06/2024 by Vikki Tyler MD at [facility] IMPLANT Right: Groin Etix [id number] / / [id number] Elunir Implanted:Qty: 1 on 06/16/2018 by Vikki Tyler MD at [facility] N/A: Coronary CORDIS 12/16/2019 / [id number] / [id number] Procedures Procedure Name Priority Date/Time Associated Diagnosis Comments XR CHEST 2 VIEWS Routine 04/04/2025 8:30 AM CDT Chondrocostal junction syndrome from Last 3 Months Results * XR CHEST 2 VIEWS (04/04/2025 8:30 AM CDT) Anatomical Region Laterality Modality Chest N/A Digital Radiogra phy 04/19/2025 10:0 8 AM CDT Impressions 04/19/2025 10:10 AM CDT IMPRESSION: No acute cardiopulmonary abnormality. Narrative 04/19/2025 10:10 AM CDT EXAM DESCRIPTION: XR CHEST 2 VIEWS REASON FOR STUDY: pt c/o left sided chest pain, aortic mechanical valve placed nov 16, partial pnuemo post op, former smoker x quit 20 years ago TECHNIQUE: PA and lateral radiographic view(s) of the chest. COMPARISON: 11/12/2024 and 01/23/2019 FINDINGS: LUNGS: There is subtle coarsening of interstitial markings within both lungs. There are granulomatous calcifications present. Lungs similar in appearance compared to the prior examination. No effusion or pneumothorax. HEART/MEDIASTINUM: Cardiac silhouette and mediastinal contours within normal limits in size. Postinflammatory calcifications are present. LINES/TUBES: Sternotomy changes are noted. Valve prosthesis. BONES: No acute osseous abnormality. THIS IS AN ELECTRONICALLY VERIFIED FINAL REPORT 04/19/2025 10:08 AM - Electronically signed by Ibis Olmedo M.D. TW: NEW Report ID: [id number] Reading Location: [id number] Procedure Note Ibis Olmedo MD - 04/19/2025 EXAM DESCRIPTION: XR CHEST 2 VIEWS REASON FOR STUDY: pt c/o left sided chest pain, aortic mechanical valve placed nov 16, partial pnuemo post op, former smoker x quit 20 years ago TECHNIQUE: PA and lateral radiographic view(s) of the chest. COMPARISON: 11/12/2024 and 01/23/2019 FINDINGS: LUNGS: There is subtle coarsening of interstitial markings within both lungs. There are granulomatous calcifications present. Lungs similar in appearance compared to the prior examination. No effusion or pneumothorax. HEART/MEDIASTINUM: Cardiac silhouette and mediastinal contours within normal limits in size. Postinflammatory calcifications are present. LINES/TUBES: Sternotomy changes are noted. Valve prosthesis. BONES: No acute osseous abnormality. THIS IS AN ELECTRONICALLY VERIFIED FINAL REPORT 04/19/2025 10:08 AM - Electronically signed by Ibis Olmedo M.D. TW: NEW Report ID: [id number] Reading Location: [id number] IMPRESSION: No acute cardiopulmonary abnormality. Edgar Tejeda [facility] Fin al Result from Last 3 Months Insurance [facility] GENER[facility] Advance Directives * Full Code (Latest Code Status on File) Date Activated Date Inactivated Comments 06/17/2018 12:38 PM 06/17/2018 3:46 PM CPR-Full Tr eatment: FULL ARREST: Attempt Resuscitation/CPR wit intubation and mechanical ventilation. PRE-ARREST: Use entire range of life support measures to stabilize the patient. Care Teams General Assembler Relationship Specialty Start Date End Date Edgar Tejeda, [address] [place] [address] PCP - General Physician Outside Sales Account Executive 07/01/22 Scott Crowley MD [address] [facility] [address] [place] [address] Consulting Physician Urology 07/15/22 Vikki Tyler MD 2 [facility] [address] [place] [address] Consulting Physician Cardiovascular Disease - Cardiology 07/31/22 Carlos Marc MD [address] [place] [address] Consulting Physician Gastroenterology 07/30/22
== END 2025-05-15 08:05 | disposition home or self-care (01) ==
LOC: CHSIMG 08:05
PROVIDERS: PCP Physician Assistant; Visit Provider Physician Assistant
DX: R10.13 Epigastric pain (principal)
CPT/HCPCS: 76700